=== PATIENT | male | born 1950 | race Caucasian/White ===

== ENCOUNTER 2017-01-15 17:04 | Observation (INO) | payer MEDICARE, BC ==
[2017-01-15] MEDS ORDERED: Morphine 4 MG/ML Syringe IVPUSH PRN (17:17)
[2017-01-15] MEDS ORDERED: Ondansetron 4 MG/2 ML SDV IVPUSH STA (17:17)
[2017-01-15] MEDS ORDERED: Nitroglycerin 0.4 MG Tab.SL SL PRN ×2 (17:17→19:27)
[2017-01-15] MEDS ORDERED: Aspirin 81 MG Tab.Chew PO ONE (17:17)
[2017-01-15] MEDS ORDERED: Sodium Chloride 0.9% 10 ML Syringe FLUSH PRN ×2 (17:17→19:27)
--- NOTE | 2017-01-15 17:22 | EDM.PDOC ---
ED HISTORY OF PRESENT ILLNESS - General Chief Complaint: Chest Pain Stated Complaint: CHEST PAINS Time Seen by Provider: 01/15/17 17:14 Source: Reports: Patient, Family, RN notes reviewed History Limitations: Reports: No limitations - History of Present Illness INITIAL COMMENTS - FREE TEXT/NARRATIVE: 66-year-old gentleman presents emergency department day complaint of chest pain , he states that pain come on suddenly a couple hours prior while he was driving he does have a history of pulmonary embolism he does feel short of breath no nausea vomiting no diaphoresis he is also anticoagulated - Related Data Allergies/ADRs: Allergies Allergy/AdvReac Type Severity Reaction Status Date / Time No Known Allergies Allergy Verified 06/02/16 08:38 Home Meds: Home Meds Metoprolol Succinate 50 mg PO DAILY 03/09/14 [History] Warfarin [Coumadin] 3.5 mg PO ASDIRECTED 03/09/14 [History] Warfarin [Coumadin] 5 mg PO ASDIRECTED 03/09/14 [History] Tiotropium [Spiriva HandiHaler] 1 puff INH DAILY 03/22/16 [History] Albuterol Sulfate [Proair Hfa] 2 puff IH Q6H PRN 04/05/16 [History] Chromium Cinnamon 200 - 1,000 tab PO DAILY 04/05/16 [History] Fluticasone Propionate [Flovent HFA 44 mcg] 2 puff IH BID 04/05/16 [History] Furosemide [Lasix] 40 mg PO DAILY 04/05/16 [History] Lisinopril 10 mg PO DAILY 04/05/16 [History] Calcium Carbonate/Vitamin D3 [Calcium 600 + D3 Softgel] 1 each PO BID 05/31/16 [ History] Cyclobenzaprine [Flexeril] 10 mg PO TID PRN 05/31/16 [History] Allopurinol [Zyloprim] 300 mg PO DAILY 01/15/17 [History] Ascorbic Acid [Vitamin C] 01/15/17 [History] Magnesium Oxide [Magnesium] 01/15/17 [History] Potassium Chloride 01/15/17 [History] Past Medical History Cardiovascular History: Reports: Blood clots/VTE/DVT, Heart murmur, Pacemaker Respiratory History: Reports: COPD, PE Gastrointestinal History: Reports: Colon polyp Musculoskeletal History: Reports: Back pain, chronic, Neck pain, chronic Endocrine/Metabolic History: Reports: Diabetes, type II, Obesity/BMI 30+ Hematologic History: Reports: Blood transfusion(s) Other Hematologic History: Anticoagulation therapy Oncologic (Cancer) History: Reports: Colon - Infectious Disease History Infectious Disease History: Reports: Measles, Mumps, Pertussis (whooping cough) - Past Surgical History HEENT Surgical History: Reports: LUI Cardiovascular Surgical History: Reports: Pacer Respiratory Surgical History: Reports: Other (see below) Other Respiratory Surgeries/Procedures: filter GI Surgical History: Reports: Appendectomy, Colon, Colonoscopy, Hernia, abdominal, Hernia, inguinal, Polypectomy, Other (see below) Other GI Surgeries/Procedures: colon cancer resection Musculoskeletal Surgical History: Reports: Arthroscopic knee Oncologic Surgical History: Reports: Other (see below) Other Oncologic Surgeries/Procedures: colon resection Social & Family History - Tobacco Use Smoking Status *Q: Never Smoker Years of Tobacco use: 30 Used Tobacco, but Quit: Yes Month Tobacco Last Used: 11 Second Hand Smoke Exposure: No - Caffeine Use Caffeine Use: Reports: Coffee - Alcohol Use Days Per Week of Alcohol Use: 6 Number of Drinks Per Day: 4 Total Drinks Per Week: 24 - Recreational Drug Use Recreational Drug Use: No ED ROS GENERAL - Review of Systems Review Of Systems: See Below Constitutional: Reports: no symptoms HEENT: Reports: No symptoms Respiratory: Reports: Shortness of Breath. Denies: Cough, Sputum Cardiovascular: Reports: Chest pain, Dyspnea on exertion GI/Abdominal: Reports: No symptoms : Reports: no symptoms Musculoskeletal: Reports: no symptoms Skin: Reports: no symptoms Neurological: Reports: No Symptoms ED EXAM, GENERAL - Physical Exam Exam: See Below Exam Limited By: No limitations General Appearance: alert, WD/WN, mild distress Head: atraumatic, normocephalic Neck: normal inspection, supple, non-tender, full range of motion Respiratory/Chest: no respiratory distress, lungs clear, normal breath sounds, no accessory muscle use, chest non-tender Cardiovascular: regular rate, rhythm, no murmur GI/Abdominal: soft, non tender, other (Obese) Extremities: pedal edema Course - Vital Signs Last Recorded V/S: Last Vital Signs Temp 98.4 F 01/15/17 18:11 Pulse 74 01/15/17 18:11 Resp 16 01/15/17 18:11 BP 166/76 H 01/15/17 18:11 Pulse Ox 97 01/15/17 18:11 - Orders/Labs/Meds Orders: Active Orders 24 hr Category Date Time Status Cardiac Monitoring [RC] .As Directed Care 01/15/17 17:17 Active EKG Documentation Completion [RC] ASDIRECTED Care 01/15/17 17:18 Active Peripheral IV Care [RC] . DIRECTED Care 01/15/17 17:18 Active Chest 1V Frontal [CR] Stat Exams 01/15/17 17:18 Taken Morphine Med 01/15/17 17:17 Active See Dose Instructions IVPUSH ASDIRECTED PRN Nitroglycerin [Nitrostat] Med 01/15/17 17:17 Active 0.4 mg SL Q5M PRN Sodium Chloride 0.9% [Saline Flush] Med 01/15/17 17:17 Active 10 ml FLUSH ASDIRECTED PRN ED Pain Medications Reflex [OM.PC] Stat Oth 01/15/17 17:18 Ordered Peripheral IV Insertion Adult [OM.PC] Stat Oth 01/15/17 17:17 Ordered Saline Lock Insert [OM.PC] Stat Oth 01/15/17 17:17 Ordered EKG 12 Lead [EK] Stat Ther 01/15/17 17:18 Ordered Medication Orders Morphine Sulfate (Morphine) 0 mg IVPUSH ASDIRECTED PRN PRN Reason: Pain Stop: 01/16/17 17:18 Last Admin: 01/15/17 17:43 Dose: 4 mg Nitroglycerin (Nitrostat) 0.4 mg SL Q5M PRN PRN Reason: Chest Pain Stop: 01/16/17 17:18 Last Admin: 01/15/17 17:31 Dose: 0.4 mg Sodium Chloride (Saline Flush) 10 ml FLUSH ASDIRECTED PRN PRN Reason: Keep Vein Open Labs: Laboratory Tests 01/15/17 01/15/17 01/15/17 Range/Units 17:25 17:25 17:25 WBC 7.6 (4.5-11.0) K/uL RBC 4.54 (4.30-5.90) M/uL Hgb 15.6 H (12.0-15.0) g/dL Hct 45.7 (40.0-54.0) % MCV 101 H (80-98) fL MCH 34 H (27-31) pg MCHC 34 (32-36) % Plt Count 234 (150-400) K/uL Neut % (Auto) 63 (36-66) % Lymph % (Auto) 22 L (24-44) % [place] % (Auto) 10 H (2-6) % Eos % (Auto) 3 (2-4) % Baso % (Auto) 1 (0-1) % PT 21.2 H (9.5-12.0) sec INR 1.96 H (0.80-1.20) APTT 39.7 H (27.0-36.0) sec D-Dimer, Quantitative < 100 (0.0-400.0) ng/mL Sodium (140-148) mmol/L Potassium (3.6-5.2) mmol/L Chloride (100-108) mmol/L Carbon Dioxide (21-32) mmol/L Anion Gap (5.0-14.0) mmol/L BUN (7-18) mg/dL Creatinine (0.8-1.3) mg/dL Est Cr Clr Drug Dosing mL/min Estimated GFR (MDRD) (>60) Glucose (74-106) mg/dL Calcium (8.5-10.1) mg/dL Total Bilirubin (0.2-1.0) mg/dL AST (15-37) U/L ALT (12-78) U/L Alkaline Phosphatase (46-116) U/L CK-MB (CK-2) (0-3.6) mg/mL Troponin I (0.000-0.056) ng/mL Zgs-X-Dujreppjbzu Pept (5-125) pg/mL Total Protein (6.4-8.2) g/dL Albumin (3.4-5.0) g/dL Globulin (2.3-3.5) g/dL Albumin/Globulin Ratio (1.2-2.2) 01/15/17 Range/Units 17:25 WBC (4.5-11.0) K/uL RBC (4.30-5.90) M/uL Hgb (12.0-15.0) g/dL Hct (40.0-54.0) % MCV (80-98) fL MCH (27-31) pg MCHC (32-36) % Plt Count (150-400) K/uL Neut % (Auto) (36-66) % Lymph % (Auto) (24-44) % [place] % (Auto) (2-6) % Eos % (Auto) (2-4) % Baso % (Auto) (0-1) % PT (9.5-12.0) sec INR (0.80-1.20) APTT (27.0-36.0) sec D-Dimer, Quantitative (0.0-400.0) ng/mL Sodium 145 (140-148) mmol/L Potassium 4.6 (3.6-5.2) mmol/L Chloride 105 (100-108) mmol/L Carbon Dioxide 30 (21-32) mmol/L Anion Gap 10.4 (5.0-14.0) mmol/L BUN 16 (7-18) mg/dL Creatinine 1.1 D (0.8-1.3) mg/dL Est Cr Clr Drug Dosing 77.84 mL/min Estimated GFR (MDRD) > 60 (>60) Glucose 111 H (74-106) mg/dL Calcium 9.5 (8.5-10.1) mg/dL Total Bilirubin 0.3 (0.2-1.0) mg/dL AST 29 (15-37) U/L ALT 28 (12-78) U/L Alkaline Phosphatase 47 (46-116) U/L CK-MB (CK-2) 2.4 (0-3.6) mg/mL Troponin I < 0.017 (0.000-0.056) ng/mL Aws-M-Secifkncvdi Pept 99 (5-125) pg/mL Total Protein 7.5 (6.4-8.2) g/dL Albumin 3.7 (3.4-5.0) g/dL Globulin 3.8 H (2.3-3.5) g/dL Albumin/Globulin Ratio 1.0 L (1.2-2.2) Meds: Medications Generic Name Dose Route Start Last Admin Trade Name Freq PRN Reason Stop Dose Admin Morphine Sulfate 0 mg 01/15/17 17:17 01/15/17 17:43 Morphine IVPUSH 01/16/17 17:18 4 mg ASDIRECTED PRN Administration Pain Nitroglycerin 0.4 mg 01/15/17 17:17 01/15/17 17:31 Nitrostat SL 01/16/17 17:18 0.4 mg Q5M PRN Administration Chest Pain Sodium Chloride 10 ml 01/15/17 17:17 Saline Flush FLUSH ASDIRECTED PRN Keep Vein Open Discontinued Medications Generic Name Dose Route Start Last Admin Trade Name Claribel PRN Reason Stop Dose Admin Aspirin 324 mg 01/15/17 17:17 01/15/17 17:30 Aspirin PO 01/15/17 17:18 324 mg ONETIME ONE Administration Ondansetron HCl 4 mg 01/15/17 17:17 Zofran IVPUSH 01/15/17 17:18 ASDIRECTED STA Departure - Departure Time of Disposition: 18:32 Disposition: Admitted As Inpatient 67 Condition: good Clinical Impression: Chest pain Qualifiers: Chest pain type: unspecified Qualified Code(s): R07.9 - Chest pain, unspecified Forms: ED Department Discharge - My Orders Last 24 Hours: My Active Orders 01/15/17 17:17 Cardiac Monitoring [RC] .As Directed Morphine See Dose Instructions IVPUSH ASDIRECTED PRN Nitroglycerin [Nitrostat] 0.4 mg SL Q5M PRN Sodium Chloride 0.9% [Saline Flush] 10 ml FLUSH ASDIRECTED PRN Peripheral IV Insertion Adult [OM.PC] Stat Saline Lock Insert [OM.PC] Stat 01/15/17 17:18 EKG Documentation Completion [RC] ASDIRECTED Peripheral IV Care [RC] . DIRECTED Chest 1V Frontal [CR] Stat ED Pain Medications Reflex [OM.PC] Stat EKG 12 Lead [EK] Stat - Assessment/Plan Last 24 Hours: My Active Orders 01/15/17 17:17 Cardiac Monitoring [RC] .As Directed Morphine See Dose Instructions IVPUSH ASDIRECTED PRN Nitroglycerin [Nitrostat] 0.4 mg SL Q5M PRN Sodium Chloride 0.9% [Saline Flush] 10 ml FLUSH ASDIRECTED PRN Peripheral IV Insertion Adult [OM.PC] Stat Saline Lock Insert [OM.PC] Stat 01/15/17 17:18 EKG Documentation Completion [RC] ASDIRECTED Peripheral IV Care [RC] . DIRECTED Chest 1V Frontal [CR] Stat ED Pain Medications Reflex [OM.PC] Stat EKG 12 Lead [EK] Stat Plan: Assessment Acuity = acute Site and laterality = chest pain complicated patient with known history of pulmonary embolism on chronic anticoagulation, diabetes mellitus type 2, dyslipidemia and hypertension Etiology = unclear etiology Manifestations = none Location of injury = home Lab values = INR therapeutic 1.96 d-dimer is negative, troponin negative EKG demonstrates paced rhythm chest x-ray I did review films myself I cannot appreciate any acute process, the official read from radiology is pending Plan DOUG score is 2, heart score is 5 called discussed case with hospitalist division head he agreed to come to the emergency department evaluate the patient for admission Patient was in agreement with the plan all questions were answered, This note was dictated using Test[employer] voice recognition software please call with any questions.
[2017-01-15] MEDS ORDERED: Sodium Chloride 0.9% 80 ML IV SCH ×2 (19:15)
[2017-01-15] MEDS ORDERED: Iopamidol 755 Mg/ML 100 ML Bottle IV SCH ×2 (19:15)
--- NOTE | 2017-01-15 19:17 | PCM.HP ---
H&P History of Present Illness - General Date of Service: 01/15/17 Admit Problem/Dx: Admission Diagnosis/Problem Admission Diagnosis/Problem Chest pain Source of Information: Patient, Family, Provider, RN notes reviewed History Limitations: Reports: No limitations - History of Present Illness Initial Comments - Free Text/Narative: This patient is a 66-year-old gentleman who is admitted to observation status for further evaluation and management of chest pain. He was feeling well until midafternoon when he noted abrupt onset of severe pleuritic pain in his lower anterior chest. The pain did not radiate but was persistent especially with breathing. Pain improves if he takes more shallow breaths. When the pain persisted he presented to the emergency department for further evaluation. EKG shows no acute ST segment changes and chest x-ray shows no obvious infiltrates or other abnormalities. He does have a past history of deep vein thrombosis as well as pulmonary emboli. 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 Troponin level is normal, d-dimer normal, with a normal white blood cell count. Vital signs have been stable and he has remained afebrile. Mid-Sternal Chest Pain Score (Numeric/FACES): 6 - Related Data Allergies/Adverse Reactions: Allergies Allergy/AdvReac Type Severity Reaction Status Date / Time No Known Allergies Allergy Verified 06/02/16 08:38 Home Medications: Home Meds Metoprolol Succinate 50 mg PO DAILY 03/09/14 [History] Warfarin [Coumadin] 3.5 mg PO ASDIRECTED 03/09/14 [History] Warfarin [Coumadin] 5 mg PO ASDIRECTED 03/09/14 [History] Tiotropium [Spiriva HandiHaler] 1 puff INH DAILY 03/22/16 [History] Albuterol Sulfate [Proair Hfa] 2 puff IH Q6H PRN 04/05/16 [History] Chromium Cinnamon 200 - 1,000 tab PO DAILY 04/05/16 [History] Fluticasone Propionate [Flovent HFA 44 mcg] 2 puff IH BID 04/05/16 [History] Furosemide [Lasix] 40 mg PO DAILY 04/05/16 [History] Lisinopril 10 mg PO DAILY 04/05/16 [History] Calcium Carbonate/Vitamin D3 [Calcium 600 + D3 Softgel] 1 each PO BID 05/31/16 [ History] Cyclobenzaprine [Flexeril] 10 mg PO TID PRN 05/31/16 [History] Allopurinol [Zyloprim] 300 mg PO DAILY 01/15/17 [History] Ascorbic Acid [Vitamin C] 01/15/17 [History] Magnesium Oxide [Magnesium] 01/15/17 [History] Potassium Chloride 01/15/17 [History] Past Medical History Cardiovascular History: Reports: Blood clots/VTE/DVT, Heart murmur, Pacemaker Respiratory History: Reports: COPD, PE Gastrointestinal History: Reports: Colon polyp Genitourinary History: Reports: Prostate disorder Musculoskeletal History: Reports: Back pain, chronic, Neck pain, chronic Endocrine/Metabolic History: Reports: Diabetes, type II, Obesity/BMI 30+ Hematologic History: Reports: Blood transfusion(s) Other Hematologic History: Anticoagulation therapy Oncologic (Cancer) History: Reports: Colon - Infectious Disease History Infectious Disease History: Reports: Measles, Mumps, Pertussis (whooping cough) - Past Surgical History HEENT Surgical History: Reports: LUI Cardiovascular Surgical History: Reports: Pacer Respiratory Surgical History: Reports: Other (see below) Other Respiratory Surgeries/Procedures: filter GI Surgical History: Reports: Appendectomy, Colon, Colonoscopy, Hernia, abdominal, Hernia, inguinal, Polypectomy, Other (see below) Other GI Surgeries/Procedures: colon cancer resection Musculoskeletal Surgical History: Reports: Arthroscopic knee Oncologic Surgical History: Reports: Other (see below) Other Oncologic Surgeries/Procedures: colon resection Social & Family History - Tobacco Use Smoking Status *Q: Never Smoker Years of Tobacco use: 30 Used Tobacco, but Quit: Yes Month Tobacco Last Used: 11 Second Hand Smoke Exposure: No - Caffeine Use Caffeine Use: Reports: Coffee - Alcohol Use Days Per Week of Alcohol Use: 6 Number of Drinks Per Day: 4 Total Drinks Per Week: 24 - Recreational Drug Use Recreational Drug Use: No H&P Review of Systems - Review of Systems: Review Of Systems: See Below General: Denies: fever, chills, weakness, fatigue, diaphoresis HEENT: Reports: no symptoms Pulmonary: Reports: Pleuritic Chest Pain. Denies: Shortness of Breath, Wheezing , Cough, Sputum, Hemoptysis Cardiovascular: Reports: no symptoms Gastrointestinal: Reports: No symptoms Genitourinary: Reports: no symptoms Musculoskeletal: Reports: no symptoms Skin: Reports: no symptoms Psychiatric: Reports: no symptoms Neurological: Reports: No Symptoms Hematologic/Lymphatic: Reports: no symptoms Immunologic: Reports: no symptoms Exam - Exam Exam: See Below - Vital Signs Vital Signs: Last Vital Signs Temp 98.4 F 01/15/17 18:11 Pulse 74 01/15/17 18:11 Resp 16 01/15/17 18:11 BP 166/76 H 01/15/17 18:11 Pulse Ox 97 01/15/17 18:11 Weight: 337 lb 4.916 oz - Exam Quality Assessment: DVT prophylaxis General: alert, oriented, cooperative, mild distress HEENT: Conjunctiva clear, EOMI, Hearing intact, Mucosa moist & pink, Nares patent, Normal nasal septum, Posterior pharynx clear, Pupils equal, Pupils reactive, TMs clear Neck: supple, trachea midline, +2 carotid pulse wo bruit Lungs: Clear to auscultation, Normal respiratory effort Cardiovascular: regular rate, regular rhythm, normal S1, normal S2. No: systolic murmur, diastolic murmur Abdomen: normal bowel sounds, soft Back Exam: normal inspection, full range of motion, NT Extremities: 3, normal inspection, 10 Skin: warm, dry, intact Neurological: cranial nerves intact, strength equal bilateral, normal gait, normal speech, normal tone, sensation intact. No: focal deficit Neuro Extensive - Mental Status: alert, oriented x3, normal mood/affect, normal cognition, memory intact - Patient Data Lab Results last 24 hrs: Laboratory Results - last 24 hr 01/15/17 01/15/17 01/15/17 Range/Units 17:25 17:25 17:25 WBC 7.6 (4.5-11.0) K/uL RBC 4.54 (4.30-5.90) M/uL Hgb 15.6 H (12.0-15.0) g/dL Hct 45.7 (40.0-54.0) % MCV 101 H (80-98) fL MCH 34 H (27-31) pg MCHC 34 (32-36) % Plt Count 234 (150-400) K/uL Neut % (Auto) 63 (36-66) % Lymph % (Auto) 22 L (24-44) % [place] % (Auto) 10 H (2-6) % Eos % (Auto) 3 (2-4) % Baso % (Auto) 1 (0-1) % PT 21.2 H (9.5-12.0) sec INR 1.96 H (0.80-1.20) APTT 39.7 H (27.0-36.0) sec D-Dimer, Quantitative < 100 (0.0-400.0) ng/mL Sodium (140-148) mmol/L Potassium (3.6-5.2) mmol/L Chloride (100-108) mmol/L Carbon Dioxide (21-32) mmol/L Anion Gap (5.0-14.0) mmol/L BUN (7-18) mg/dL Creatinine (0.8-1.3) mg/dL Est Cr Clr Drug Dosing mL/min Estimated GFR (MDRD) (>60) Glucose (74-106) mg/dL Calcium (8.5-10.1) mg/dL Total Bilirubin (0.2-1.0) mg/dL AST (15-37) U/L ALT (12-78) U/L Alkaline Phosphatase (46-116) U/L CK-MB (CK-2) (0-3.6) mg/mL Troponin I (0.000-0.056) ng/mL Lyh-J-Xfgeogaopog Pept (5-125) pg/mL Total Protein (6.4-8.2) g/dL Albumin (3.4-5.0) g/dL Globulin (2.3-3.5) g/dL Albumin/Globulin Ratio (1.2-2.2) 01/15/17 Range/Units 17:25 WBC (4.5-11.0) K/uL RBC (4.30-5.90) M/uL Hgb (12.0-15.0) g/dL Hct (40.0-54.0) % MCV (80-98) fL MCH (27-31) pg MCHC (32-36) % Plt Count (150-400) K/uL Neut % (Auto) (36-66) % Lymph % (Auto) (24-44) % [place] % (Auto) (2-6) % Eos % (Auto) (2-4) % Baso % (Auto) (0-1) % PT (9.5-12.0) sec INR (0.80-1.20) APTT (27.0-36.0) sec D-Dimer, Quantitative (0.0-400.0) ng/mL Sodium 145 (140-148) mmol/L Potassium 4.6 (3.6-5.2) mmol/L Chloride 105 (100-108) mmol/L Carbon Dioxide 30 (21-32) mmol/L Anion Gap 10.4 (5.0-14.0) mmol/L BUN 16 (7-18) mg/dL Creatinine 1.1 D (0.8-1.3) mg/dL Est Cr Clr Drug Dosing 77.84 mL/min Estimated GFR (MDRD) > 60 (>60) Glucose 111 H (74-106) mg/dL Calcium 9.5 (8.5-10.1) mg/dL Total Bilirubin 0.3 (0.2-1.0) mg/dL AST 29 (15-37) U/L ALT 28 (12-78) U/L Alkaline Phosphatase 47 (46-116) U/L CK-MB (CK-2) 2.4 (0-3.6) mg/mL Troponin I < 0.017 (0.000-0.056) ng/mL Ixg-G-Upbtrfyvick Pept 99 (5-125) pg/mL Total Protein 7.5 (6.4-8.2) g/dL Albumin 3.7 (3.4-5.0) g/dL Globulin 3.8 H (2.3-3.5) g/dL Albumin/Globulin Ratio 1.0 L (1.2-2.2) Result Diagrams: 01/15/17 17:25 01/15/17 17:25 *Q Meaningful Use (ADM) - VTE *Q VTE Criteria *Q: VTE Pharmacological Contraindications *Q: High INR Value - VTE Risk Assess *Q Each Risk Factor Represents 1 Point: Abnormal Pulmonary Function (COPD) Total Score 1 Point Risk Factors: 1 Each Risk Factor Represents 2 Points: Age 60 - 74 Years, Morbid Obesity (BMI Greater than 40) Total Score 2 Point Risk Factors: 4 Each Risk Factor Represents 3 Points: History Superficial Venous Thrombosis, DVT or PE Total Score 3 Point Risk Factors: 3 Each Risk Factor Represents 5 Points: None Total Score 5 Point Risk Factors: 0 Venous Thromboembolism Risk Factor Score *Q: 8 - Stroke *Q Stroke Criteria *Q: - AMI *Q AMI Criteria *Q: Problem List Initiated/Reviewed/Updated: Yes Orders Last 24hrs: Active Orders 24 hr Category Date Time Status Patient Status Manage Transfer [TRANSFER] Routine ADT 01/15/17 18:55 Ordered Cardiac Monitoring [RC] .As Directed Care 01/15/17 17:17 Active Cardiac Monitoring [RC] .As Directed Care 01/15/17 18:55 Ordered EKG Documentation Completion [RC] ASDIRECTED Care 01/15/17 17:18 Active Peripheral IV Care [RC] . DIRECTED Care 01/15/17 17:18 Active Ang Chest [CT] Stat Exams 01/15/17 18:52 Ordered Chest 1V Frontal [CR] Stat Exams 01/15/17 17:18 Taken Iopamidol [Isovue-370 (76%)] Med 01/15/17 19:15 Active 100 ml IV . DIRECTED Morphine Med 01/15/17 17:17 Active See Dose Instructions IVPUSH ASDIRECTED PRN Nitroglycerin [Nitrostat] Med 01/15/17 17:17 Active 0.4 mg SL Q5M PRN Sodium Chloride 0.9% [Normal Saline] 80 ml Med 01/15/17 19:15 Active IV ASDIRECTED Sodium Chloride 0.9% [Saline Flush] Med 01/15/17 17:17 Active 10 ml FLUSH ASDIRECTED PRN ED Pain Medications Reflex [OM.PC] Stat Oth 01/15/17 17:18 Ordered Peripheral IV Insertion Adult [OM.PC] Stat Oth 01/15/17 17:17 Ordered Saline Lock Insert [OM.PC] Stat Oth 01/15/17 17:17 Ordered Resuscitation Status Routine Resus Stat 01/15/17 18:57 Ordered EKG 12 Lead [EK] Stat Ther 01/15/17 17:18 Ordered Medication Orders Sodium Chloride (Normal Saline) 80 mls @ 3 mls/sec IV ASDIRECTED CHRIS Iopamidol (Isovue-370 (76%)) 100 ml IV . DIRECTED CHRIS Morphine Sulfate (Morphine) 0 mg IVPUSH ASDIRECTED PRN PRN Reason: Pain Stop: 01/16/17 17:18 Last Admin: 01/15/17 17:43 Dose: 4 mg Nitroglycerin (Nitrostat) 0.4 mg SL Q5M PRN PRN Reason: Chest Pain Stop: 01/16/17 17:18 Last Admin: 01/15/17 17:31 Dose: 0.4 mg Sodium Chloride (Saline Flush) 10 ml FLUSH ASDIRECTED PRN PRN Reason: Keep Vein Open Assessment/Plan Comment:: ASSESSMENT AND PLAN PLEURITIC CHEST PAIN-abrupt onset today, improved with narcotics, no improvement with nitroglycerin. 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 Troponin, d-dimer, and white blood cell count are within normal range. EKG shows no acute ST segment changes and chest x-ray no obvious infiltrates. -CT scan of the chest with PE protocol -Serial troponin levels -Pain medication as needed -Cardiac monitoring TYPE 2 DIABETES MELLITUS-currently on no active treatment -4 times a day glucometers -Low-dose sliding scale NovoLog HISTORY OF DAILY ALCOHOL USE-he estimates 6-8 ounces per day -Monitor closely for any evidence of alcohol withdrawal CHRONIC ORAL ANTICOAGULATION WITH WARFARIN -Continue outpatient warfarin dosing -Recheck INR in a.m. MAINTENANCE ISSUES -DVT prophylaxis; current therapy with warfarin should provide adequate DVT prophylaxis -GI prophylaxis; Protonix 40 mg by mouth daily -[place] catheter; not indicated -Nutrition; consistent carb diet -Nicotine dependence; not required CODE STATUS-FULL CODE ADMISSION STATUS-patient will be admitted to observation status, expect no more than a one night hospital stay for evaluation and management of chest pain as outlined above DISPOSITION-anticipate discharge to home after the hospital stay. PRIMARY CARE PROVIDER-Dr. Olivier
[2017-01-15] MEDS ORDERED: HYDROmorphone 0.5 MG/0.5 ML Syringe IVPUSH PRN (19:27)
[2017-01-15] MEDS ORDERED: oxyCODONE 5 MG Tab PO PRN (19:27)
[2017-01-15] MEDS ORDERED: Albuterol 0.083% 2.5 MG/3 ML Neb Soln NEB PRN (19:27)
[2017-01-15] MEDS ORDERED: Albuterol 8 GM Inhaler INH PRN (19:27)
[2017-01-15] MEDS ORDERED: Pantoprazole 40 MG Tab.CR PO SCH (19:27)
[2017-01-15] MEDS ORDERED: Acetaminophen 325 MG Tab PO PRN (19:27)
[2017-01-15] MEDS ORDERED: Ondansetron 4 MG/2 ML SDV IV PRN (19:27)
[2017-01-16 08:31] VITALS: BP 158/83
[2017-01-16] MEDS ORDERED: Allopurinol 300 MG Tab PO SCH (09:00)
[2017-01-16] MEDS ORDERED: Tiotropium Inhaler 18 MCG Inhalation Powder Cap Kit of 5 INH SCH (09:00)
[2017-01-16] MEDS ORDERED: Lisinopril 10 MG Tab PO SCH (09:00)
[2017-01-16] MEDS ORDERED: Potassium Chloride 20 MEQ Tab.ER PO SCH (09:00)
[2017-01-16] MEDS ORDERED: Furosemide 40 MG Tab PO SCH (09:00)
[2017-01-16] MEDS ORDERED: Metoprolol Succinate 50 MG Tab.ER PO SCH (09:00)
[2017-01-16] MEDS ORDERED: Aspirin 81 MG Tab.Chew PO SCH (09:00)
[2017-01-16] MEDS ORDERED: FLUTICASONE PROPIONATE IH SCH (09:00)
--- NOTE | 2017-01-16 09:15 | CR ---
Mild cardiomegaly. Pacer with multiple leads. No focal consolidation.
--- NOTE | 2017-01-16 09:44 | PCM.DCSUM1 ---
Discharge Summary - Hospital Course Brief History: This patient is a 66-year-old gentleman who was admitted through the emergency department observation status for further evaluation and management of pleuritic chest pain. - Discharge Data Discharge Date: 01/16/17 Discharge Disposition: Home, Self-Care 01 Condition: Fair - Discharge Diagnosis/Problem(s) (1) Pleuritic chest pain SNOMED Code(s): 4141308 ICD Code: R07.81 - PLEURODYNIA Status: Acute Current Visit: Yes (2) SOB (shortness of breath) SNOMED Code(s): 310217696 ICD Code: R06.02 - SHORTNESS OF BREATH Status: Acute Current Visit: Yes - Patient Summary/Data Hospital Course: This patient is a 66-year-old gentleman who developed abrupt onset of pleuritic chest pain on the day of admission. Pain was of moderate intensity and was persistent after presentation to the emergency department. EKG showed no acute ST segment changes and initial troponin level was within normal range. Chest x- ray showed no obvious infiltrates and other laboratory studies were unremarkable. He has a known history of deep vein thrombosis and pulmonary embolism and has been on long-term oral anticoagulation with warfarin. A [place] filter was placed in the inferior vena cava in the past and remains in place. CT scan of the chest with PE protocol was obtained showing no evidence of pulmonary embolism or other significant abnormalities within the chest. He was admitted to observation status, serial troponin levels remained within normal range. By the following morning the pain had improved but had not totally resolved. A Lexiscan Cardiolite study will be scheduled for the day after discharge and a followup appointment will be scheduled with Dr. Olivier within one week. Activity will be as tolerated and he will resume his usual diet. - Patient Instructions Diet: Usual Diet as Tolerated Activity: As Tolerated Other/Special Instructions: Please schedule outpatient Lexiscan Cardiolite study for Sunday, January 17. Please schedule followup appointment with Dr. Olivier within one week. - Discharge Plan Home Medications: Home Meds Metoprolol Succinate 50 mg PO DAILY 03/09/14 [History] Warfarin [Coumadin] 3.5 mg PO ASDIRECTED 03/09/14 [History] Warfarin [Coumadin] 5 mg PO ASDIRECTED 03/09/14 [History] Tiotropium [Spiriva HandiHaler] 1 puff INH DAILY 03/22/16 [History] Albuterol Sulfate [Proair Hfa] 2 puff IH Q6H PRN 04/05/16 [History] Chromium Cinnamon 200 - 1,000 tab PO DAILY 04/05/16 [History] Fluticasone Propionate [Flovent HFA 44 mcg] 2 puff IH BID 04/05/16 [History] Furosemide [Lasix] 40 mg PO DAILY 04/05/16 [History] Lisinopril 10 mg PO DAILY 04/05/16 [History] Calcium Carbonate/Vitamin D3 [Calcium 600 + Vit D 400 Softgl] 1 each PO BID [History] Cyclobenzaprine [Flexeril] 10 mg PO TID PRN 05/31/16 [History] Allopurinol [Zyloprim] 300 mg PO DAILY 01/15/17 [History] Ascorbic Acid [Vitamin C] 01/15/17 [History] Magnesium Oxide [Magnesium] 01/15/17 [History] Potassium Chloride 01/15/17 [History] Referrals: Olvin Olivier MD [Primary Care Provider] - - Patient Data Vitals - Most Recent: Last Vital Signs Temp 97.4 F 01/16/17 08:00 Pulse 84 01/16/17 08:00 Resp 11 L 01/16/17 08:00 BP 158/83 H 01/16/17 08:00 Pulse Ox 96 01/16/17 08:00 Weight - Most Recent: 337 lb 4.916 oz I&O - Last 24 hours: Intake & Output 01/15/17 01/16/17 01/16/17 22:59 06:59 14:59 Intake Total 1900 460 Output Total 500 Balance 1400 460 Lab Results - Last 24 hrs: Laboratory Results - last 24 hr 01/15/17 01/16/17 01/16/17 Range/Units 23:00 05:00 05:00 WBC 6.3 (4.5-11.0) K/uL RBC 4.31 (4.30-5.90) M/uL Hgb 14.5 (12.0-15.0) g/dL Hct 44.0 (40.0-54.0) % MCV 102 H (80-98) fL MCH 34 H (27-31) pg MCHC 33 (32-36) % Plt Count 187 (150-400) K/uL Neut % (Auto) 60 (36-66) % Lymph % (Auto) 25 (24-44) % Kleberg % (Auto) 11 H (2-6) % Eos % (Auto) 4 (2-4) % Baso % (Auto) 0 (0-1) % PT 20.1 H (9.5-12.0) sec INR 1.86 H (0.80-1.20) Sodium (140-148) mmol/L Potassium (3.6-5.2) mmol/L Chloride (100-108) mmol/L Carbon Dioxide (21-32) mmol/L Anion Gap (5.0-14.0) mmol/L BUN (7-18) mg/dL Creatinine (0.8-1.3) mg/dL Est Cr Clr Drug Dosing mL/min Estimated GFR (MDRD) (>60) Glucose (74-106) mg/dL Calcium (8.5-10.1) mg/dL Troponin I < 0.017 (0.000-0.056) ng/mL 01/16/17 Range/Units 05:00 WBC (4.5-11.0) K/uL RBC (4.30-5.90) M/uL Hgb (12.0-15.0) g/dL Hct (40.0-54.0) % MCV (80-98) fL MCH (27-31) pg MCHC (32-36) % Plt Count (150-400) K/uL Neut % (Auto) (36-66) % Lymph % (Auto) (24-44) % Kleberg % (Auto) (2-6) % Eos % (Auto) (2-4) % Baso % (Auto) (0-1) % PT (9.5-12.0) sec INR (0.80-1.20) Sodium 141 (140-148) mmol/L Potassium 4.0 (3.6-5.2) mmol/L Chloride 103 (100-108) mmol/L Carbon Dioxide 32 (21-32) mmol/L Anion Gap 6.5 (5.0-14.0) mmol/L BUN 19 H (7-18) mg/dL Creatinine 1.0 (0.8-1.3) mg/dL Est Cr Clr Drug Dosing 85.63 mL/min Estimated GFR (MDRD) > 60 (>60) Glucose 131 H (74-106) mg/dL Calcium 8.8 (8.5-10.1) mg/dL Troponin I < 0.017 (0.000-0.056) ng/mL Med Orders - Current: Current Medications Acetaminophen (Tylenol) 650 mg PO Q4H PRN PRN Reason: Pain (Mild 1-3)/fever Albuterol (Proventil Neb Soln) 2.5 mg NEB Q4H PRN PRN Reason: Shortness Of Breath/wheezing Albuterol (Ventolin Hfa) 0 gm INH Q4H PRN PRN Reason: Shortness of Breath Allopurinol (Zyloprim) 300 mg PO DAILY [facility] Aspirin (Aspirin) 81 mg PO DAILY [facility] Furosemide (Lasix) 40 mg PO DAILY [facility] Hydromorphone HCl (Dilaudid) 0.5 mg IVPUSH Q1H PRN PRN Reason: Pain Last Admin: 01/15/17 20:29 Dose: 0.5 mg Lisinopril (Prinivil) 10 mg PO DAILY [facility] Metoprolol Succinate (Toprol Xl) 50 mg PO DAILY [facility] Nitroglycerin (Nitrostat) 0.4 mg SL Q5M PRN PRN Reason: Chest Pain Stop: 01/16/17 19:01 Fluticasone Propionate [Flovent Hfa 44 Mcg]Pt Own 2 puff IH BID [facility] Ondansetron HCl (Zofran) 4 mg IV Q4H PRN PRN Reason: Nausea/Vomiting Oxycodone HCl (Oxycodone) 10 mg PO Q4H PRN PRN Reason: Pain (moderate 4-6) Last Admin: 01/15/17 22:57 Dose: 10 mg Pantoprazole Sodium (Protonix) 40 mg PO DAILY@0730 [facility] Potassium Chloride (Klor-Con M20) 20 meq PO DAILY [facility] Sodium Chloride (Saline Flush) 10 ml FLUSH ASDIRECTED PRN PRN Reason: Keep Vein Open Tiotropium [place] (Spiriva Handihaler) 0 mcg INH DAILY [facility] Warfarin Sodium (Coumadin) 5 mg PO DAILY@1300 [facility] Discontinued Medications Aspirin (Aspirin) 324 mg PO ONETIME ONE Stop: 01/15/17 17:18 Last Admin: 01/15/17 17:30 Dose: 324 mg Sodium Chloride (Normal Saline) 80 mls @ 3 mls/sec IV ASDIRECTED CHRIS Last Admin: 01/15/17 19:24 Dose: 3 mls/sec Sodium Chloride (Normal Saline) 80 mls @ 3 mls/sec IV ASDIRECTED [facility]IS Iopamidol (Isovue-370 (76%)) 100 ml IV . DIRECTED [facility] Iopamidol (Isovue-370 (76%)) 100 ml IV . DIRECTED [facility] Last Admin: 01/15/17 19:24 Dose: 100 ml Morphine Sulfate (Morphine) 0 mg IVPUSH ASDIRECTED PRN PRN Reason: Pain Stop: 01/16/17 17:18 Last Admin: 01/15/17 17:43 Dose: 4 mg Nitroglycerin (Nitrostat) 0.4 mg SL Q5M PRN PRN Reason: Chest Pain Stop: 01/16/17 17:18 Last Admin: 01/15/17 17:31 Dose: 0.4 mg Ondansetron HCl (Zofran) 4 mg IVPUSH ASDIRECTED STA Stop: 01/15/17 17:18 Last Admin: 01/15/17 18:31 Dose: Not Given Pantoprazole Sodium (Protonix) 40 mg PO DAILY [facility] Last Admin: 01/15/17 21:52 Dose: 40 mg Sodium Chloride (Saline Flush) 10 ml FLUSH ASDIRECTED PRN PRN Reason: Keep Vein Open Last Admin: 01/15/17 19:24 Dose: 10 ml *Q Meaningful Use (DIS) - VTE *Q VTE Criteria *Q: VTE Pharmacological Contraindications *Q: High INR Value - Stroke *Q Stroke Criteria *Q: - AMI *Q AMI Criteria *Q:
[2017-01-16] MEDS ORDERED: Warfarin 5 MG Tab PO SCH (13:00)
[2017-01-17] MEDS ORDERED: Pantoprazole 40 MG Tab.CR PO SCH (07:30)
== END 2017-01-16 11:01 | disposition home or self-care (01) ==
LOC: JP.ED 17:04 → JP.ICU 18:55
PROVIDERS: ADMIT Hospitalist; ATTEND Hospitalist
DX: R07.81 Pleurodynia (principal); R06.02 Shortness of breath; Z79.01 Long term (current) use of anticoagulants; Z79.899 Other long term (current) drug therapy; J44.9 Chronic obstructive pulmonary disease, unspecified; E11.9 Type 2 diabetes mellitus without complications; E66.9 Obesity, unspecified; Z68.30 Body mass index [BMI] 30.0-30.9, adult; Z90.49 Acquired absence of other specified parts of digestive tract; Z98.890 Other specified postprocedural states; Z95.0 Presence of cardiac pacemaker
CPT/HCPCS: 36415; 71010; 71275; 80048; 80053; 82553; 83880; 84484; 85025; 85379; 85610; 85730; 93005; 96374; 96375; 99285; A9270; G0378; J1170; J2270; J7030; J7050; Q9967; 93010; 99217; 99219

== ENCOUNTER 2017-03-01 15:30 | Emergency (ER) | payer MEDICARE, BC ==
--- NOTE | 2017-03-01 17:39 | EDM.PDOC ---
ED HPI GENERAL MEDICAL PROBLEM - General Chief Complaint: Abdominal Pain Stated Complaint: ABD PAIN Time Seen by Provider: 03/01/17 17:34 Source of Information: Reports: Patient History Limitations: Reports: No Limitations - History of Present Illness INITIAL COMMENTS - FREE TEXT/NARRATIVE: Abdominal pain for past 2 months. IN mid belly with radiation to flanks. Was admitted in January for chest symptoms , had cardiac work-up/ Had recent abdominal US negative gall bladder pathology. Pain will come and go, not associated with nausea or vomiting. States is different than heartburn. Nothing relieves it, although narcotics helped while in hospital. Had ventral hernia surgery last year with mesh placement, is concerned about that. Duration: Week(s): (8), Intermittent, Waxing/Waning Location: Reports: Abdomen Quality: Reports: Dull, Pressure, Throbbing Severity: Moderate Improves with: Reports: None Worsens with: Reports: None Associated Symptoms: Reports: No Other Symptoms Middle Abdominal Pain Score (Numeric/FACES): 10 - Related Data Allergies Allergy/AdvReac Type Severity Reaction Status Date / Time No Known Allergies Allergy Verified 06/02/16 08:38 Home Meds: Home Meds Metoprolol Succinate 50 mg PO DAILY 03/09/14 [History] Warfarin [Coumadin] 3.5 mg PO ASDIRECTED 03/09/14 [History] Warfarin [Coumadin] 5 mg PO ASDIRECTED 03/09/14 [History] Tiotropium [Spiriva HandiHaler] 1 puff INH DAILY 03/22/16 [History] Albuterol Sulfate [Proair Hfa] 2 puff IH Q6H PRN 04/05/16 [History] Chromium Cinnamon 200 - 1,000 tab PO DAILY 04/05/16 [History] Fluticasone Propionate [Flovent HFA 44 mcg] 2 puff IH BID 04/05/16 [History] Furosemide [Lasix] 40 mg PO DAILY 04/05/16 [History] Lisinopril 10 mg PO DAILY 04/05/16 [History] Calcium Carbonate/Vitamin D3 [Calcium 600 + Vit D 400 Softgl] 1 each PO BID [History] Cyclobenzaprine [Flexeril] 10 mg PO TID PRN 05/31/16 [History] Allopurinol [Zyloprim] 300 mg PO DAILY 01/15/17 [History] Ascorbic Acid [Vitamin C] 1,000 mg PO DAILY 01/15/17 [History] Magnesium Oxide [Magnesium] 500 mg PO DAILY 01/15/17 [History] Potassium Chloride 20 meq PO DAILY 01/15/17 [History] Past Medical History Cardiovascular History: Reports: Blood Clots/VTE/DVT, Heart Murmur, Hypertension , Pacemaker Respiratory History: Reports: COPD Gastrointestinal History: Reports: Colon Polyp Genitourinary History: Reports: Prostate Disorder Musculoskeletal History: Reports: Back Pain, Chronic, Neck Pain, Chronic Endocrine/Metabolic History: Reports: Diabetes, Type II, Obesity/BMI 30+ Hematologic History: Reports: Blood Transfusion(s) Other Hematologic History: Anticoagulation therapy Oncologic (Cancer) History: Reports: Colon - Infectious Disease History Infectious Disease History: Reports: Measles, Mumps, Pertussis (Whooping Cough) - Past Surgical History HEENT Surgical History: Reports: CATHIEIK Respiratory Surgical History: Reports: Other (See Below) GI Surgical History: Reports: Appendectomy, Colon, Colonoscopy, Hernia, Abdominal, Hernia, Inguinal, Polypectomy, Other (See Below) Musculoskeletal Surgical History: Reports: Arthroscopic Knee Oncologic Surgical History: Reports: Other (See Below) Social & Family History - Tobacco Use Smoking Status *Q: Former Smoker Years of Tobacco use: 30 Packs/Tins Daily: 1 Used Tobacco, but Quit: Yes Month Tobacco Last Used: 2000 Second Hand Smoke Exposure: Yes - Caffeine Use Caffeine Use: Reports: Coffee, Soda - Alcohol Use Days Per Week of Alcohol Use: 6 Number of Drinks Per Day: 6 Total Drinks Per Week: 36 - Recreational Drug Use Recreational Drug Use: No ED ROS GENERAL - Review of Systems Review Of Systems: See Below Constitutional: Reports: Malaise. Denies: Fever, Chills, Fatigue HEENT: Reports: No Symptoms Respiratory: Denies: Shortness of Breath, Pleuritic Chest Pain, Cough Cardiovascular: Denies: Chest Pain, Dyspnea on Exertion, Edema Endocrine: Reports: No Symptoms GI/Abdominal: Reports: Abdominal Pain, Distension. Denies: Black Stool, Bloody Stool, Diarrhea, Decreased Appetite, Difficulty Swallowing, Nausea, Vomiting : Reports: No Symptoms Musculoskeletal: Reports: No Symptoms Skin: Reports: No Symptoms Neurological: Reports: No Symptoms ED EXAM, GI/ABD - Physical Exam Exam: See Below Exam Limited By: Intoxication General Appearance: Alert, WD/WN, Mild Distress Neck: Normal Inspection Respiratory/Chest: No Respiratory Distress, Lungs Clear, Normal Breath Sounds Cardiovascular: Normal Peripheral Pulses, Regular Rate, Rhythm GI/Abdominal: Soft, Distention, Other (very obese, hard to get good exam). No: Guarding, Rebound Back Exam: Normal Inspection Extremities: Normal Inspection, Normal Range of Motion, No Pedal Edema Neurological: Alert, Oriented Skin Exam: Warm, Dry, No Rash Course - Vital Signs Last Recorded V/S: Last Vital Signs Temp Pulse 71 03/01/17 18:01 Resp 20 03/01/17 18:01 BP 154/88 H 03/01/17 18:01 Pulse Ox 95 03/01/17 18:01 - Orders/Labs/Meds Orders: Active Orders 24 hr Category Date Time Status Up With Assistance [RC] ASDIRECTED Care 03/01/17 17:26 Active Vital Signs [RC] Q2H Care 03/01/17 17:26 Active Abdomen Pelvis w Cont [CT] Urgent Exams 03/01/17 17:26 Taken Iopamidol [Isovue-300 (61%)] Med 03/01/17 18:00 Active 150 ml IV . DIRECTED Sodium Chloride 0.9% [Normal Saline] 80 ml Med 03/01/17 18:00 Active IV ASDIRECTED Sodium Chloride 0.9% [Saline Flush] Med 03/01/17 17:58 Active 10 ml FLUSH ASDIRECTED PRN Medication Orders Sodium Chloride (Normal Saline) 80 mls @ 3 mls/sec IV ASDIRECTED CHRIS Last Admin: 03/01/17 18:31 Dose: 3 mls/sec Iopamidol (Isovue-300 (61%)) 150 ml IV . DIRECTED [facility]RIS Last Admin: 03/01/17 18:31 Dose: 150 ml Sodium Chloride (Saline Flush) 10 ml FLUSH ASDIRECTED PRN PRN Reason: Keep Vein Open Last Admin: 03/01/17 18:28 Dose: 10 ml Labs: Laboratory Tests 03/01/17 03/01/17 Range/Units 17:25 17:25 WBC 7.7 (4.5-11.0) K/uL RBC 4.37 (4.30-5.90) M/uL Hgb 15.0 (12.0-15.0) g/dL Hct 44.0 (40.0-54.0) % MCV 101 H (80-98) fL MCH 34 H (27-31) pg MCHC 34 (32-36) % Plt Count 181 (150-400) K/uL Sodium 142 (140-148) mmol/L Potassium 4.5 (3.6-5.2) mmol/L Chloride 104 (100-108) mmol/L Carbon Dioxide 27 (21-32) mmol/L Anion Gap 10.9 (5.0-14.0) mmol/L BUN 11 (7-18) mg/dL Creatinine 0.8 (0.8-1.3) mg/dL Est Cr Clr Drug Dosing TNP Estimated GFR (MDRD) > 60 (>60) Glucose 127 H (74-106) mg/dL Calcium 9.1 (8.5-10.1) mg/dL Total Bilirubin 0.4 (0.2-1.0) mg/dL AST 27 (15-37) U/L ALT 32 (12-78) U/L Alkaline Phosphatase 38 L (46-116) U/L Total Protein 6.4 (6.4-8.2) g/dL Albumin 3.3 L (3.4-5.0) g/dL Globulin 3.1 (2.3-3.5) g/dL Albumin/Globulin Ratio 1.1 L (1.2-2.2) Lipase 130 (73-393) U/L Meds: Medications Generic Name Dose Route Start Last Admin Trade Name Freq PRN Reason Stop Dose Admin Sodium Chloride 80 mls @ 3 mls/sec 03/01/17 18:00 03/01/17 18:31 Normal Saline IV 3 mls/sec ASDIRECTED CHRIS Administration Iopamidol 150 ml 03/01/17 18:00 03/01/17 18:31 Isovue-300 (61%) IV 150 ml . DIRECTED CHRIS Administration Sodium Chloride 10 ml 03/01/17 17:58 03/01/17 18:28 Saline Flush FLUSH 10 ml ASDIRECTED PRN Administration Keep Vein Open Departure - Departure Time of Disposition: 19:35 Disposition: Home, Self-Care 01 Clinical Impression: Abdominal pain - Discharge Information Forms: ED Department Discharge - Problem List Review Problem List Initiated/Reviewed/Updated: Yes - My Orders Last 24 Hours: My Active Orders 03/01/17 17:26 Up With Assistance [RC] ASDIRECTED Vital Signs [RC] Q2H Abdomen Pelvis w Cont [CT] Urgent 03/01/17 17:58 Sodium Chloride 0.9% [Saline Flush] 10 ml FLUSH ASDIRECTED PRN 03/01/17 18:00 Iopamidol [Isovue-300 (61%)] 150 ml IV . DIRECTED Sodium Chloride 0.9% [Normal Saline] 80 ml IV ASDIRECTED - Assessment/Plan Last 24 Hours: My Active Orders 03/01/17 17:26 Up With Assistance [RC] ASDIRECTED Vital Signs [RC] Q2H Abdomen Pelvis w Cont [CT] Urgent 03/01/17 17:58 Sodium Chloride 0.9% [Saline Flush] 10 ml FLUSH ASDIRECTED PRN 03/01/17 18:00 Iopamidol [Isovue-300 (61%)] 150 ml IV . DIRECTED Sodium Chloride 0.9% [Normal Saline] 80 ml IV ASDIRECTED Assessment:: presents with abdominal pain over past 2 months. Admitted in early January for heart work-up, hx of hernia repair with mesh last year Labwork was normal. CT of abdomen was normal, no signs of issues with hernia repair Plan: Home with OP follow-up. Consider that he might have a nerve impingment from previous surgery. Will ask his PMD for possible anesthesia or pain clinic referral
[2017-03-01] MEDS ORDERED: Sodium Chloride 0.9% 10 ML Syringe FLUSH PRN (17:58)
[2017-03-01] MEDS ORDERED: Iopamidol 612 MG/ML 150 ML Bottle IV SCH (18:00)
[2017-03-01] MEDS ORDERED: Sodium Chloride 0.9% 80 ML IV SCH (18:00)
[2017-03-01 19:43] VITALS: BP 158/95
== END 2017-03-01 19:53 | disposition home or self-care (01) ==
LOC: JP.ED 15:30
DX: R10.9 Unspecified abdominal pain (principal); I10 Essential (primary) hypertension; J44.9 Chronic obstructive pulmonary disease, unspecified; E11.9 Type 2 diabetes mellitus without complications; E66.9 Obesity, unspecified; Z98.890 Other specified postprocedural states; Z79.01 Long term (current) use of anticoagulants; Z79.899 Other long term (current) drug therapy; Z86.718 Personal history of other venous thrombosis and embolism; Z95.0 Presence of cardiac pacemaker
CPT/HCPCS: 36415; 74177; 80053; 83690; 85027; 99284; J7030; J7050

== ENCOUNTER 2017-03-26 05:57 | Observation (INO) | payer MEDICARE, BC ==
[2017-03-26] MEDS ORDERED: Bupivacaine 0.5%/EPINEPHrine 1:200,000 50 ML MDV ONE (06:46)
[2017-03-26] MEDS ORDERED: Lidocaine 1% 50 ML MDV ONE (06:46)
[2017-03-26] MEDS: Lactated Ringers 1,000 ML IV SCH ×2 (07:10→12:07)
[2017-03-26] MEDS ORDERED: cefOXitin 2 GM in Sodium Chloride 0.9% 50 ML IV ONE (07:30)
[2017-03-26] MEDS ORDERED: Propofol 200 MG/20 ML SDV ONE (07:31)
[2017-03-26] MEDS ORDERED: Dexamethasone 4 MG/ML SDV ONE (07:31)
[2017-03-26] MEDS ORDERED: fentaNYL 250 MCG/5 ML SDV ONE ×2 (07:31→08:14)
[2017-03-26] MEDS ORDERED: Succinylcholine/Normal Saline 200 MG/10 ML Syringe ONE (07:31)
[2017-03-26] MEDS ORDERED: Neostigmine Methylsulfate 1 MG/ML 5 ML Syringe ONE (07:31)
[2017-03-26] MEDS ORDERED: Ondansetron 4 MG/2 ML SDV ONE (07:31)
[2017-03-26] MEDS ORDERED: Rocuronium 50 MG/5 ML Vial ONE (07:31)
[2017-03-26] MEDS ORDERED: Metoprolol Succinate 50 MG Tab.ER PO ONE (07:34)
[2017-03-26] MEDS ORDERED: Naloxone 0.4 MG/ML SDV ONE (07:59)
[2017-03-26] MEDS ORDERED: Ondansetron 4 MG/2 ML SDV IVPUSH PRN (09:22)
[2017-03-26] MEDS ORDERED: hydrOXYzine HCl 100 MG/2 ML SDV IM PRN (09:22)
[2017-03-26] MEDS ORDERED: HYDROmorphone/Normal Saline 15 MG/30 ML PCA IV SCH (09:30)
[2017-03-26] MEDS ORDERED: Naloxone 0.4 MG/ML SDV IV PRN (09:35)
[2017-03-26] MEDS: Insulin Aspart 100 Units/ML 3 ML Pen SUBCUT SCH ×3 (12:35→22:03)
[2017-03-26] MEDS ORDERED: Dextrose 5%-0.225% NaCl w/KCl 1,000 ML IV SCH (13:45)
[2017-03-26] MEDS: Albuterol 8 GM Inhaler INH SCH ×3 (13:47→23:28)
[2017-03-26] MEDS: D5 1/2 NS w/ 20 mEq/L KCl 1,000 ML IV SCH ×2 (14:36→22:02)
[2017-03-26] MEDS: Acetaminophen/HYDROcodone 325-5 MG Tab PO PRN ×2 (19:04→20:26)
[2017-03-26] MEDS: Calcium Carbonate/Vitamin D3 1500 MG-400 Units Tab PO SCH (20:27)
[2017-03-26] MEDS ORDERED: Lidocaine 2% Jelly 10 ML Urojet MUCMEM ONE (22:35)
[2017-03-26] MEDS ORDERED: Lidocaine 2% Jelly 10 ML Urojet ONE (22:40)
[2017-03-27] MEDS: Acetaminophen/HYDROcodone 325-5 MG Tab PO PRN ×6 (00:37→21:50)
[2017-03-27] MEDS: Cyclobenzaprine 10 MG Tab PO PRN ×2 (00:50→18:43)
[2017-03-27] MEDS: Albuterol 8 GM Inhaler INH SCH ×4 (05:36→23:10)
[2017-03-27] MEDS: D5 1/2 NS w/ 20 mEq/L KCl 1,000 ML IV SCH (05:39)
--- NOTE | 2017-03-27 06:26 | PCM.SURGPN ---
- General Info Date of Service: 03/27/17 Date of Surgery/Procedure: 03/26/17 POD#: 1 Post-Op Diagnosis: Chronic cholecystitis with biliary dyskinesia Functional Status: Reports: pain controlled, tolerating diet, urinating (Needed to have Wright catheter placed for urinary retention with over 600 ml's in his bladder. ) - Review of Systems General: Reports: No Symptoms Pulmonary: Reports: no symptoms Cardiovascular: Reports: No Symptoms Gastrointestinal: Reports: No symptoms. Denies: Flatus Genitourinary: Reports: retention Musculoskeletal: Reports: no symptoms Skin: Reports: no symptoms Neurological: Reports: No Symptoms Psychiatric: Reports: no symptoms - Patient Data Vitals - most recent: Last Vital Signs Temp 98.2 F 03/27/17 02:00 Pulse 71 03/27/17 02:00 Resp 12 03/27/17 02:00 BP 122/71 03/27/17 02:00 Pulse Ox 98 03/27/17 02:00 Weight - most recent: 343 lb 0.7 oz I&O - last 24 hours: Intake & Output 03/26/17 03/26/17 03/27/17 14:59 22:59 06:59 Intake Total 1890 2370 2904 Output Total 1475 Balance 1890 2370 1429 Lab Results last 24 hrs: Laboratory Results - last 24 hr 03/26/17 03/26/17 03/26/17 Range/Units 06:53 06:53 17:00 WBC 7.3 14.9 H (4.5-11.0) K/uL RBC 4.43 4.53 (4.30-5.90) M/uL Hgb 15.0 15.5 H (12.0-15.0) g/dL Hct 44.8 46.7 (40.0-54.0) % MCV 101 H 103 H (80-98) fL MCH 34 H 34 H (27-31) pg MCHC 34 33 (32-36) % Plt Count 169 197 (150-400) K/uL PT (9.5-12.0) sec INR (0.80-1.20) Sodium 141 (140-148) mmol/L Potassium 4.3 (3.6-5.2) mmol/L Chloride 104 (100-108) mmol/L Carbon Dioxide 28 (21-32) mmol/L Anion Gap 8.6 (5.0-14.0) mmol/L BUN 12 (7-18) mg/dL Creatinine 0.9 (0.8-1.3) mg/dL Est Cr Clr Drug Dosing 95.14 mL/min Estimated GFR (MDRD) > 60 (>60) Glucose 144 H (74-106) mg/dL Calcium 8.8 (8.5-10.1) mg/dL Total Bilirubin 0.6 (0.2-1.0) mg/dL AST 23 (15-37) U/L ALT 18 (12-78) U/L Alkaline Phosphatase 43 L (46-116) U/L Total Protein 6.7 (6.4-8.2) g/dL Albumin 3.2 L (3.4-5.0) g/dL Globulin 3.5 (2.3-3.5) g/dL Albumin/Globulin Ratio 0.9 L (1.2-2.2) 03/27/17 03/27/17 03/27/17 Range/Units 05:00 05:00 05:00 WBC 11.8 H (4.5-11.0) K/uL RBC 4.03 L (4.30-5.90) M/uL Hgb 13.9 (12.0-15.0) g/dL Hct 42.0 (40.0-54.0) % MCV 104 H (80-98) fL MCH 35 H (27-31) pg MCHC 33 (32-36) % Plt Count 163 (150-400) K/uL PT 11.3 (9.5-12.0) sec INR 1.05 (0.80-1.20) Sodium 136 L (140-148) mmol/L Potassium 4.9 (3.6-5.2) mmol/L Chloride 101 (100-108) mmol/L Carbon Dioxide 30 (21-32) mmol/L Anion Gap 9.9 (5.0-14.0) mmol/L BUN 15 (7-18) mg/dL Creatinine 1.1 (0.8-1.3) mg/dL Est Cr Clr Drug Dosing 77.84 mL/min Estimated GFR (MDRD) > 60 (>60) Glucose 153 H (74-106) mg/dL Calcium 8.8 (8.5-10.1) mg/dL Total Bilirubin 0.7 (0.2-1.0) mg/dL AST 46 H D (15-37) U/L ALT 43 D (12-78) U/L Alkaline Phosphatase 41 L (46-116) U/L Total Protein 6.6 (6.4-8.2) g/dL Albumin 3.2 L (3.4-5.0) g/dL Globulin 3.4 (2.3-3.5) g/dL Albumin/Globulin Ratio 0.9 L (1.2-2.2) Iban Results last 24 hrs: Microbiology 03/26/17 09:25 Gram Stain - Final Gallbladder Wound Culture - Preliminary NO GROWTH AFTER 1 DAY Anaerobic Culture - Preliminary NO GROWTH AFTER 1 DAY Med Orders - Current: Current Medications Hydrocodone Bitart/Acetaminophen ([place] 325-5 Mg) 1 - 2 tab PO Q4H PRN PRN Reason: Pain Last Admin: 03/27/17 04:51 Dose: 2 tab Albuterol (Ventolin Hfa) 0 gm INH Q6H [facility] Last Admin: 03/27/17 05:36 Dose: 2 puff Allopurinol (Zyloprim) 300 mg PO DAILY [facility] Ascorbic Acid (Vitamin C) 1,000 mg PO DAILY [facility] Calcium Carbonate (Caltrate 600+D 1500 Mg-400 Units) 1 tab PO BID [facility] Last Admin: 03/26/17 20:27 Dose: 1 tab Cyclobenzaprine HCl (Flexeril) 10 mg PO TID PRN PRN Reason: Muscle Spasm Last Admin: 03/27/17 00:50 Dose: 10 mg Furosemide (Lasix) 40 mg PO DAILY [facility] Hydromorphone HCl (Dilaudid Popped Corn Oven Attendant 15 Mg In Ns 30 Ml) 0 mg IV ASDIRECTED [facility] PRN Reason: Protocol Hydroxyzine HCl (Vistaril) 50 mg IM Q4H PRN PRN Reason: Nausea Potassium Chloride/Dextrose/Sod Cl (D5 1/2 Ns W/ 20 Meq/L Kcl) 1,000 mls @ 125 mls/hr IV ASDIRECTED [facility] Last Admin: 03/27/17 05:39 Dose: 125 mls/hr Insulin Aspart (Novolog) 0 unit SUBCUT ASDIRECTED [facility] PRN Reason: Protocol Last Admin: 03/26/17 22:03 Dose: 3 units Lisinopril (Prinivil) 10 mg PO DAILY [facility] Magnesium Oxide (Magnesium Oxide) 400 mg PO DAILY [facility] Metoprolol Succinate (Toprol Xl) 50 mg PO DAILY [facility] Mometasone Furoate (Asmanex 110 Mcg) 0 puff INH DAILY@0700 [facility] Naloxone HCl (Narcan) 0.1 mg IV ASDIRECTED PRN PRN Reason: decreased respiratory rate Chromium Cinnamon ( (Ptom)) 200 - 1,000 tab PO DAILY [facility] Ondansetron HCl (Zofran) 4 mg IVPUSH Q6H PRN PRN Reason: Nausea/Vomiting Potassium Chloride (Klor-Con M20) 20 meq PO DAILY@0800 [facility] Tiotropium [place] (Spiriva Handihaler) 18 mcg INH DAILY@0730 [facility] Discontinued Medications Bupivacaine HCl/Epinephrine Bitart (Marcaine 0.5%/Epinephrine 1:200,000) Confirm Administered Dose 50 ml .ROUTE .STK-MED ONE Stop: 03/26/17 06:47 Last Admin: 03/26/17 08:33 Dose: 10 ml Dexamethasone (Dexamethasone) Confirm Administered Dose 4 mg .ROUTE .STK-MED ONE Stop: 03/26/17 07:32 Fentanyl (Sublimaze) Confirm Administered Dose 250 mcg .ROUTE .STK-MED ONE Stop: 03/26/17 07:32 Fentanyl (Sublimaze) Confirm Administered Dose 250 mcg .ROUTE .STK-MED ONE Stop: 03/26/17 08:15 Glycopyrrolate () Confirm Administered Dose 1 mg .ROUTE .STK-MED ONE Stop: 03/26/17 07:32 Lactated Ringer's (Ringers, Lactated) 1,000 mls @ 0 mls/hr IV ASDIRECTED [facility] PRN Reason: KVO Last Admin: 03/26/17 12:07 Dose: 25 mls/hr Cefoxitin Sodium 2 gm/ Sodium (Chloride) 50 mls @ 100 mls/hr IV ONETIME ONE Stop: 03/26/17 07:59 Last Admin: 03/26/17 07:41 Dose: 100 mls/hr Lidocaine HCl (Xylocaine 1%) Confirm Administered Dose 50 ml .ROUTE .STK-MED ONE Stop: 03/26/17 06:47 Last Admin: 03/26/17 08:33 Dose: 10 ml Lidocaine HCl (Xylocaine 2% Jelly) 10 ml MUCMEM ONETIME ONE Stop: 03/26/17 22:36 Last Admin: 03/26/17 22:50 Dose: 10 ml Lidocaine HCl (Xylocaine 2% Jelly) Confirm Administered Dose 10 ml .ROUTE .STK- MED ONE Stop: 03/26/17 22:41 Last Admin: 03/26/17 22:50 Dose: Not Given Metoprolol Succinate (Toprol Xl) 50 mg PO ONETIME ONE Stop: 03/26/17 07:35 Last Admin: 03/26/17 07:39 Dose: 50 mg Naloxone HCl (Narcan) Confirm Administered Dose 0.4 mg .ROUTE .STK-MED ONE Stop: 03/26/17 08:00 Neostigmine Methylsulfate (Neostigmine) Confirm Administered Dose 5 mg .ROUTE .STK-MED ONE Stop: 03/26/17 07:32 Ondansetron HCl (Zofran) Confirm Administered Dose 4 mg .ROUTE .STK-MED ONE Stop: 03/26/17 07:32 Propofol (Diprivan 20 Ml) Confirm Administered Dose 200 mg .ROUTE .STK-MED ONE Stop: 03/26/17 07:32 Rocuronium Phoenix (Zemuron) Confirm Administered Dose 50 mg .ROUTE .STK-MED ONE Stop: 03/26/17 07:32 Succinylcholine Chloride (Succinylcholine In Ns Pf) Confirm Administered Dose 200 mg .ROUTE .STK-MED ONE Stop: 03/26/17 07:32 - Exam Wound/Incisions: healing well, no drainage Quality Assessment: supplemental oxygen, urine catheter, DVT prophylaxis General: oriented, lethargic Lungs: Clear to auscultation, Normal respiratory effort Cardiovascular: Regular Rate, Regular Rhythm Abdomen: soft, no tenderness, no distension Extremities: no edema Skin: warm, dry, intact Neurological: no new focal deficit Psy/Mental Status: normal affect, normal mood, other (He is a little lethargic. ) - Problem List & Annotations (1) Chronic cholecystitis without calculus SNOMED Code(s): 83967870 Code(s): K81.1 - CHRONIC CHOLECYSTITIS Status: Acute Current Visit: Yes - Problem List Review Problem List Initiated/Reviewed/Updated: Yes - My Orders Last 24 Hours: Active Orders 24 hr Category Date Time Status Patient Status [ADT] Routine ADT 03/26/17 09:23 Active Accu Check [Blood Glucose Check, Bedside] [RC] Care 03/26/17 09:33 Active QIDACANDBED Ambulate [RC] ASDIRECTED Care 03/26/17 09:22 Active Antiembolic Devices [RC] .Routine Care 03/26/17 09:28 Active Blood Glucose Check, Bedside [RC] QIDACANDBED Care 03/26/17 09:22 Inactive Blood Glucose Check, Bedside [RC] QIDACANDBED Care 03/26/17 09:22 Inactive Communication Order [RC] Q8H Care 03/26/17 18:02 Active Diabetes Education [RC] Click to Edit Care 03/26/17 09:27 Active Incentive Spirometry [RT Incentive Spirometry] [RC] Care 03/26/17 07:30 Active ASDIRECTED Insert Wright Catheter [Insert Urinary Catheter] [OM.PC] Care 03/26/17 22:45 Ordered Q24H Notify Provider Vital Signs [RC] PRN Care 03/26/17 09:24 Active Notify Provider [RC] PRN Care 03/26/17 09:31 Active Oxygen Therapy [RC] PRN Care 03/26/17 09:23 Active Pulse Oximetry [RC] CONTINUOUS Care 03/26/17 09:24 Active Up With Assistance [RC] ASDIRECTED Care 03/26/17 09:22 Active Up to Chair [RC] ASDIRECTED Care 03/26/17 09:22 Active Urinary Catheter Assessment [RC] ASDIRECTED Care 03/26/17 22:34 Active VTE/DVT Education [RC] Click to Edit Care 03/26/17 09:28 Active Respiratory Care Assess and Treatment [CONS] Routine Cons 03/26/17 09:22 Active Advance Diet Instructions [DIET] Diet 03/26/17 Lunch Active CULTURE ANAEROBIC [RM] Routine Lab 03/26/17 09:25 Results CULTURE WOUND + SMEAR [RM] Routine Lab 03/26/17 09:25 Results GLUCOSE POC LAB TO COLLECT [POC] QIDACANDBED Lab 03/27/17 07:30 Ordered GLUCOSE POC LAB TO COLLECT [POC] QIDACANDBED Lab 03/27/17 11:30 Ordered GLUCOSE POC LAB TO COLLECT [POC] QIDACANDBED Lab 03/27/17 16:30 Ordered GLUCOSE POC LAB TO COLLECT [POC] QIDACANDBED Lab 03/27/17 21:00 Ordered GLUCOSE POC LAB TO COLLECT [POC] QIDACANDBED Lab 03/28/17 07:30 Ordered GLUCOSE POC LAB TO COLLECT [POC] QIDACANDBED Lab 03/28/17 11:30 Ordered GLUCOSE POC LAB TO COLLECT [POC] QIDACANDBED Lab 03/28/17 16:30 Ordered GLUCOSE POC LAB TO COLLECT [POC] QIDACANDBED Lab 03/28/17 21:00 Ordered GLUCOSE POC LAB TO COLLECT [POC] QIDACANDBED Lab 03/29/17 07:30 Ordered GLUCOSE POC LAB TO COLLECT [POC] QIDACANDBED Lab 03/29/17 11:30 Ordered GLUCOSE POC LAB TO COLLECT [POC] QIDACANDBED Lab 03/29/17 16:30 Ordered GLUCOSE POC LAB TO COLLECT [POC] QIDACANDBED Lab 03/29/17 21:00 Ordered GLUCOSE POC LAB TO COLLECT [POC] QIDACANDBED Lab 03/30/17 07:30 Ordered Acetaminophen/HYDROcodone [Penning[place] 325-5 MG] Med 03/26/17 17:56 Active 1 - 2 tab PO Q4H PRN Albuterol [Ventolin HFA] Med 03/26/17 12:00 Active 0 gm INH Q6H Allopurinol [Zyloprim] Med 03/27/17 09:00 Active 300 mg PO DAILY Ascorbic Acid [Vitamin C] Med 03/27/17 09:00 Active 1,000 mg PO DAILY Calcium Carbonate/Vitamin D3 [Caltrate 600+D 1500 MG- Med 03/26/17 21:00 Active 400 Units] 1 tab PO BID Chromium Cinnamon Med 03/27/17 09:00 Active 200 - 1,000 tab PO DAILY Cyclobenzaprine [Flexeril] Med 03/26/17 09:18 Active 10 mg PO TID PRN D5 1/2 NS w/ 20 mEq/L KCl 1,000 ml Med 03/26/17 14:30 Active IV ASDIRECTED Furosemide [Lasix] Med 03/27/17 09:00 Active 40 mg PO DAILY HYDROmorphone/Normal Saline [Dilaudid [employer] 15 MG in NS Med 03/26/17 09:30 Active 30 ML] 0 mg IV ASDIRECTED Insulin Aspart [NovoLOG] Med 03/26/17 09:30 Active See Protocol SUBCUT ASDIRECTED Lisinopril [Prinivil] Med 03/27/17 09:00 Active 10 mg PO DAILY Magnesium Oxide Med 03/27/17 09:00 Active 400 mg PO DAILY Metoprolol Succinate [Toprol XL] Med 03/27/17 09:00 Active 50 mg PO DAILY Mometasone Furoate [Asmanex 110 MCG] Med 03/27/17 07:00 Active 0 puff INH DAILY@0700 Naloxone [Narcan] Med 03/26/17 09:35 Active 0.1 mg IV ASDIRECTED PRN Ondansetron [Zofran] Med 03/26/17 09:22 Active 4 mg IVPUSH Q6H PRN Potassium Chloride [Klor-Con M20] Med 03/27/17 08:00 Active 20 meq PO DAILY@0800 Tiotropium [Spiriva HandiHaler] Med 03/27/17 07:30 Active 18 mcg INH DAILY@0730 hydrOXYzine HCl [Vistaril] Med 03/26/17 09:22 Active 50 mg IM Q4H PRN Abdominal Binder [OM.PC] Per Unit Routine Ot 03/26/17 09:24 Ordered Antiembolic Hose [OM.PC] Routine Ot 03/26/17 09:22 Ordered DVT/VTE Prophylaxis Reflex [OM.PC] Per Unit Routine Ot 03/26/17 09:27 Ordered Glucose Management Sub Q Reflex [OM.PC] QIDACANDBED [facility] 03/26/17 11:30 Ordered Glucose Management Sub Q Reflex [OM.PC] QIDACANDBED Ot 03/26/17 16:30 Ordered Glucose Management Sub Q Reflex [OM.PC] QIDACANDBED [facility] 03/26/17 21:00 Ordered Glucose Management Sub Q Reflex [OM.PC] QIDACANDBED Ot 03/27/17 07:30 Ordered Glucose Management Sub Q Reflex [OM.PC] QIDACANDBED Ot 03/27/17 11:30 Ordered Glucose Management Sub Q Reflex [OM.PC] QIDACANDBED [facility] 03/27/17 16:30 Ordered Glucose Management Sub Q Reflex [OM.PC] QIDACANDBED Ot 03/27/17 21:00 Ordered Glucose Management Sub Q Reflex [OM.PC] QIDACANDBED Ot 03/28/17 07:30 Ordered Glucose Management Sub Q Reflex [OM.PC] QIDACANDBED Oth 03/28/17 11:30 Ordered Glucose Management Sub Q Reflex [OM.PC] QIDACANDBED Oth 03/28/17 16:30 Ordered Sequential Compression Device [OM.PC] Routine Oth 03/26/17 07:30 Ordered Resuscitation Status Routine Resus Stat 03/26/17 09:22 Ordered Medication Orders Hydrocodone Bitart/Acetaminophen ([place] 325-5 Mg) 1 - 2 tab PO Q4H PRN PRN Reason: Pain Last Admin: 03/27/17 04:51 Dose: 2 tab Admin: 03/27/17 00:37 Dose: 2 tab Admin: 03/26/17 20:26 Dose: 1 tab Admin: 03/26/17 19:04 Dose: 1 tab Albuterol (Ventolin Hfa) 0 gm INH Q6H [facility] Last Admin: 03/27/17 05:36 Dose: 2 puff Admin: 03/26/17 23:28 Dose: 2 puff Admin: 03/26/17 17:20 Dose: 2 puff Admin: 03/26/17 13:47 Dose: 2 puff Allopurinol (Zyloprim) 300 mg PO DAILY [facility] Ascorbic Acid (Vitamin C) 1,000 mg PO DAILY [facility] Calcium Carbonate (Caltrate 600+D 1500 Mg-400 Units) 1 tab PO BID [facility] Last Admin: 03/26/17 20:27 Dose: 1 tab Cyclobenzaprine HCl (Flexeril) 10 mg PO TID PRN PRN Reason: Muscle Spasm Last Admin: 03/27/17 00:50 Dose: 10 mg Furosemide (Lasix) 40 mg PO DAILY [facility] Hydromorphone HCl (Dilaudid Popped Corn Oven Attendant 15 Mg In Ns 30 Ml) 0 mg IV ASDIRECTED [facility] PRN Reason: Protocol Hydroxyzine HCl (Vistaril) 50 mg IM Q4H PRN PRN Reason: Nausea Potassium Chloride/Dextrose/Sod Cl (D5 1/2 Ns W/ 20 Meq/L Kcl) 1,000 mls @ 125 mls/hr IV ASDIRECTED [facility] Last Admin: 03/27/17 05:39 Dose: 125 mls/hr Infusion: 03/27/17 05:39 Dose: 125 mls/hr Admin: 03/26/17 22:02 Dose: 125 mls/hr Infusion: 03/26/17 22:02 Dose: 125 mls/hr Admin: 03/26/17 14:36 Dose: 125 mls/hr Insulin Aspart (Novolog) 0 unit SUBCUT ASDIRECTED [facility] PRN Reason: Protocol Last Admin: 03/26/17 22:03 Dose: 3 units Admin: 03/26/17 17:11 Dose: 2 units Admin: 03/26/17 12:35 Dose: 2 units Lisinopril (Prinivil) 10 mg PO DAILY [facility] Magnesium Oxide (Magnesium Oxide) 400 mg PO DAILY [facility] Metoprolol Succinate (Toprol Xl) 50 mg PO DAILY [facility] Mometasone Furoate (Asmanex 110 Mcg) 0 puff INH DAILY@0700 [facility] Naloxone HCl (Narcan) 0.1 mg IV ASDIRECTED PRN PRN Reason: decreased respiratory rate Chromium Cinnamon ( (Ptom)) 200 - 1,000 tab PO DAILY [facility] Ondansetron HCl (Zofran) 4 mg IVPUSH Q6H PRN PRN Reason: Nausea/Vomiting Potassium Chloride (Klor-Con M20) 20 meq PO DAILY@0800 [facility] Tiotropium Phoenix (Spiriva Handihaler) 18 mcg INH DAILY@0730 [facility] - Assessment Assessment (Free Text/Narrative):: Could not void so Wright was placed. Taking a lot of fluid without problems, but no flatus/BM. T bili good. - Plan Plan (Free Text/Narrative):: Trial of D/C Wright. Dulcolax supp. Turn down IV.
[2017-03-27] MEDS ORDERED: D5 1/2 NS w/ 20 mEq/L KCl 1,000 ML IV SCH (06:30)
[2017-03-27] MEDS: Tiotropium Inhaler 18 MCG Inhalation Powder Cap Kit of 5 INH SCH (07:49)
[2017-03-27] MEDS: MOMETASONE FUROATE INH SCH (07:51)
[2017-03-27] MEDS: Potassium Chloride 20 MEQ Tab.ER PO SCH (07:55)
[2017-03-27] MEDS: Insulin Aspart 100 Units/ML 3 ML Pen SUBCUT SCH ×2 (08:10→16:50)
[2017-03-27] MEDS: Ascorbic Acid 500 MG Tab PO SCH (08:41)
[2017-03-27] MEDS: Lisinopril 10 MG Tab PO SCH (08:41)
[2017-03-27] MEDS: Allopurinol 300 MG Tab PO SCH (08:41)
[2017-03-27] MEDS: Magnesium Oxide 400 MG Tab PO SCH (08:43)
[2017-03-27] MEDS: Furosemide 40 MG Tab PO SCH (08:44)
[2017-03-27] MEDS: Metoprolol Succinate 50 MG Tab.ER PO SCH (08:44)
[2017-03-27] MEDS: [UNRECOGNIZED DRUG - OTHER] PO SCH (08:45)
[2017-03-27] MEDS: Calcium Carbonate/Vitamin D3 1500 MG-400 Units Tab PO SCH ×2 (08:46→20:06)
[2017-03-27] MEDS: Bisacodyl 10 MG Supp RECTAL SCH (09:09)
--- NOTE | 2017-03-27 10:40 | OR ---
DATE OF PROCEDURE: 03/26/2017 PREOPERATIVE DIAGNOSIS: 1. Chronic cholecystitis with biliary dyskinesia. 2. Fatty liver. POSTOPERATIVE DIAGNOSIS: 1. Chronic cholecystitis with biliary dyskinesia. 2. Fatty liver. PROCEDURE: Laparoscopic cholecystectomy. SURGEON: Miguel Pathak MD. ANESTHESIA: General endotracheal. INDICATION: This is a 66-year-old white male who complains of intermittent episodes of right upper quadrant abdominal pain occasionally with nausea. Ultrasound and CAT scan of his abdomen were unremarkable. A CCK-stimulated HIDA scan was abnormal in that the ejection fraction is only 5% consistent with biliary dyskinesia and chronic cholecystitis. His liver functions were unremarkable. He is admitted for a laparoscopic cholecystectomy. I counseled him for surgery including risks and alternatives, and he gave his informed consent to proceed. DESCRIPTION OF PROCEDURE: After adequate general endotracheal anesthesia was obtained, the patient's abdomen was prepped and draped in the usual sterile fashion. Time -out was held. The leg compression stockings were in place and used during the entire procedure. An epigastric incision was made and through this incision a 12 mm port was introduced into the abdomen using the Optiview technique. This site was used because he has a mesh in place from a prior incisional hernia repair measuring 10 x 15 cm. The abdomen was insufflated to a pressure of 15 mmHg with carbon dioxide and the camera was introduced into the abdomen. No evidence of intraabdominal injury was seen. Under direct vision, a 12-mm port was placed in the right lower quadrant and lateral to this a 5 mm port was placed also in the right lower quadrant. A small skin incision was made in the right upper quadrant. He did appear to have a fatty liver and this was seen also on radiographic studies. Through this incision, a Jose Luis-Cut liver biopsy was obtained. The specimen was placed on a Telfa pad and sent to pathology. The Jose Luis-Cut liver biopsy site was cauterized, which achieved hemostasis. The gallbladder was then grasped and elevated. The cystic duct and arteries were dissected free. The cystic duct was divided right up on the gallbladder and then three times proximally and divided between clips. The cystic artery was also clipped up on the gallbladder and several times proximally and divided between clips. The gallbladder was then dissected free from the gallbladder bed using Bovie electrocautery. It was placed in a sample retrieval bag and elevated up through the anterior abdominal wall via the epigastric port site. It was delivered from the field where it was cultured. It was noted to contain no stones. The epigastric port was re-introduced back in the abdomen. The gallbladder bed was irrigated and suctioned dry. Hemostasis was noted. The fascial closure device was used to place an 0 Vicryl stitch in the epigastric fascial defect. We did not tie the stitch down. The port was reintroduced back into the abdomen and then under direct vision, the 12 mm port site in the right lower quadrant was closed with interrupted stitch of 0 Vicryl using the fascial closure device. Both the stitches were then tied down. We evacuated as much of the CO2 from the abdomen as we could via the 5 mm port site in the right lower quadrant and then this port was removed. Lidocaine 1% plain in a 50:50 mix with 0.5% Marcaine with epinephrine was infiltrated about all incisions. The skin incisions were closed with subcuticular stitches of 4-0 Vicryl. Dermabond was applied. The anesthesia was reversed. He was extubated and brought to the recovery room in good condition. Miguel Pathak MD /[id number] PARDEEP
[2017-03-27] MEDS ORDERED: hydrOXYzine HCl 100 MG/2 ML SDV ONE (16:45)
[2017-03-27] MEDS ORDERED: Acetaminophen/HYDROcodone 325-5 MG Tab ONE (17:19)
[2017-03-27] MEDS ORDERED: Tamsulosin 0.4 MG Cap.ER PO SCH (21:00)
[2017-03-28] MEDS: Albuterol 8 GM Inhaler INH SCH ×2 (05:45→11:39)
[2017-03-28] MEDS: Acetaminophen/HYDROcodone 325-5 MG Tab PO PRN ×2 (05:50→10:12)
[2017-03-28] MEDS: Tiotropium Inhaler 18 MCG Inhalation Powder Cap Kit of 5 INH SCH (07:14)
[2017-03-28] MEDS: MOMETASONE FUROATE INH SCH (07:16)
[2017-03-28 07:30] VITALS: BP 123/77
[2017-03-28] MEDS: Potassium Chloride 20 MEQ Tab.ER PO SCH (07:49)
[2017-03-28] MEDS: Lisinopril 10 MG Tab PO SCH (08:39)
[2017-03-28] MEDS: Allopurinol 300 MG Tab PO SCH (08:40)
[2017-03-28] MEDS: Ascorbic Acid 500 MG Tab PO SCH (08:40)
[2017-03-28] MEDS: Metoprolol Succinate 50 MG Tab.ER PO SCH (08:40)
[2017-03-28] MEDS: Calcium Carbonate/Vitamin D3 1500 MG-400 Units Tab PO SCH (08:41)
[2017-03-28] MEDS: Magnesium Oxide 400 MG Tab PO SCH (08:41)
[2017-03-28] MEDS: [UNRECOGNIZED DRUG - OTHER] PO SCH (08:41)
[2017-03-28] MEDS: Bisacodyl 10 MG Supp RECTAL SCH (08:41)
[2017-03-28] MEDS: Furosemide 40 MG Tab PO SCH (08:41)
--- NOTE | 2017-03-28 13:06 | PCM.DCSUM1 ---
Discharge Summary - Hospital Course Free Text/Narrative:: This 66 year old white male was admitted two days ago for a laparoscopic cholecystectomyl. He has been complaining of right upper quadrant abdominal pain with CT and US studies negative. A CCK stimulated HIDA was abnormal with an ejection fraction of only 5%. His CT and US showed what appeared to be a fatty liver. He underwent the laparoscopic cholecystectomy with Jose Luis-cut liver biopsy on March 26, 2017. He ended up staying in the hospital for two days due to transient lethargy, difficulty voiding and problems eating. He is now discharged home in good condition. Brief History: See above narrative. - Discharge Data Discharge Date: 03/28/17 Discharge Disposition: Home, Self-Care 01 Condition: Good - Discharge Diagnosis/Problem(s) (1) Chronic cholecystitis without calculus SNOMED Code(s): 96596902 ICD Code: K81.1 - CHRONIC CHOLECYSTITIS Status: Acute Current Visit: Yes - Patient Summary/Data Operative Procedure(s) Performed: See above narrative Consults: Consultations 03/26/17 09:22 Respiratory Care Assess and Treatment [CONS] Routine Comment: Physician Instructions: Cough, deep breath, IS q 1 hour while awake. Hospital Course: See above narrative. - Patient Instructions Diet: Usual Diet as Tolerated Activity: No Strenuous Activities (For two weeks. ) Driving, Other: Do not drive while taking narcotic pain medication. Showering/Bathing: May Shower, No Tub Bathing/Swimming Notify Provider of: Fever, Increased Pain, Swelling and Redness, Drainage, Nausea and/or Vomiting - Discharge Plan Prescriptions/Med Rec: Acetaminophen/HYDROcodone [Peosta 325-5 MG] 1 - 2 tab PO Q4H PRN #30 tablet PRN Reason: Abdominal Pain Home Medications: Home Meds Metoprolol Succinate 50 mg PO DAILY 03/09/14 [History] Warfarin [Coumadin] 3.5 mg PO ASDIRECTED 03/09/14 [History] Warfarin [Coumadin] 5 mg PO ASDIRECTED 03/09/14 [History] Tiotropium [Spiriva HandiHaler] 1 puff INH DAILY 03/22/16 [History] Albuterol Sulfate [Proair Hfa] 2 puff IH Q6H PRN 04/05/16 [History] Chromium Cinnamon 200 - 1,000 tab PO DAILY 04/05/16 [History] Fluticasone Propionate [Flovent HFA 44 mcg] 2 puff IH BID 04/05/16 [History] Furosemide [Lasix] 40 mg PO DAILY 04/05/16 [History] Lisinopril 10 mg PO DAILY 04/05/16 [History] Calcium Carbonate/Vitamin D3 [Calcium 600 + Vit D 400 Softgl] 1 each PO BID [History] Cyclobenzaprine [Flexeril] 10 mg PO TID PRN 05/31/16 [History] Allopurinol [Zyloprim] 300 mg PO DAILY 01/15/17 [History] Ascorbic Acid [Vitamin C] 1,000 mg PO DAILY 01/15/17 [History] Magnesium Oxide [Magnesium] 500 mg PO DAILY 01/15/17 [History] Potassium Chloride 20 meq PO DAILY 01/15/17 [History] Acetaminophen/HYDROcodone [Peosta 325-5 MG] 1 - 2 tab PO Q4H PRN #30 tablet 03/28 [Rx] Referrals: Miguel Pathak MD [Physician] - (See me next Sunday in [facility]. ) - Discharge Summary/Plan Comment DC Time >30 min.: Yes Discharge Summary/Plan Comment: See above narrative. - General Info Date of Service: 03/28/17 Admission Dx/Problem (Free Text: Chronic cholecystitis with biliary dyskinesia. Functional Status: Reports: pain controlled, tolerating diet, ambulating, urinating - Review of Systems General: Reports: No Symptoms HEENT: Reports: no symptoms Pulmonary: Reports: no symptoms Cardiovascular: Reports: No Symptoms Gastrointestinal: Reports: No symptoms, Other (He has had BMs. ) Genitourinary: Reports: no symptoms Musculoskeletal: Reports: no symptoms Skin: Reports: no symptoms Neurological: Reports: No Symptoms Psychiatric: Reports: no symptoms - Patient Data Vitals - Most Recent: Last Vital Signs Temp 98.6 F 03/28/17 07:27 Pulse 71 03/28/17 08:40 Resp 16 03/28/17 07:27 BP 123/77 03/28/17 08:40 Pulse Ox 97 03/28/17 07:27 Weight - Most Recent: 343 lb 0.699 oz I&O - Last 24 hours: Intake & Output 03/27/17 03/28/17 03/28/17 22:59 06:59 14:59 Intake Total 1858 311 240 Output Total 4606 918 3509 Balance [phone] -[phone] -360 DARRYL Results - Last 24 hrs: Microbiology 03/26/17 09:25 Gram Stain - Final Gallbladder Wound Culture - Preliminary NO GROWTH AFTER 2 DAYS Anaerobic Culture - Preliminary NO GROWTH AFTER 2 DAYS Med Orders - Current: Current Medications Hydrocodone Bitart/Acetaminophen (Peosta 325-5 Mg) 1 - 2 tab PO Q4H PRN PRN Reason: Pain Last Admin: 03/28/17 10:12 Dose: 2 tab Albuterol (Ventolin Hfa) 0 gm INH Q6H [facility] Last Admin: 03/28/17 11:39 Dose: 2 puff Allopurinol (Zyloprim) 300 mg PO DAILY [facility] Last Admin: 03/28/17 08:40 Dose: 300 mg Ascorbic Acid (Vitamin C) 1,000 mg PO DAILY [facility] Last Admin: 03/28/17 08:40 Dose: 1,000 mg Bisacodyl (Dulcolax) 10 mg RECTAL DAILY [facility] Last Admin: 03/28/17 08:41 Dose: 10 mg Calcium Carbonate (Caltrate 600+D 1500 Mg-400 Units) 1 tab PO BID [facility] Last Admin: 03/28/17 08:41 Dose: 1 tab Cyclobenzaprine HCl (Flexeril) 10 mg PO TID PRN PRN Reason: Muscle Spasm Last Admin: 03/27/17 18:43 Dose: 10 mg Furosemide (Lasix) 40 mg PO DAILY [facility] Last Admin: 03/28/17 08:41 Dose: 40 mg Hydroxyzine HCl (Vistaril) 50 mg IM Q4H PRN PRN Reason: Nausea Last Admin: 03/27/17 16:47 Dose: 50 mg Potassium Chloride/Dextrose/Sod Cl (D5 1/2 Ns W/ 20 Meq/L Kcl) 1,000 mls @ 25 mls/hr IV ASDIRECTED [facility] Insulin Aspart (Novolog) 0 unit SUBCUT ASDIRECTED [facility] PRN Reason: Protocol Last Admin: 03/27/17 16:50 Dose: 1 units Lisinopril (Prinivil) 10 mg PO DAILY [facility] Last Admin: 03/28/17 08:39 Dose: 10 mg Magnesium Oxide (Magnesium Oxide) 400 mg PO DAILY [facility] Last Admin: 03/28/17 08:41 Dose: 400 mg Metoprolol Succinate (Toprol Xl) 50 mg PO DAILY [facility] Last Admin: 03/28/17 08:40 Dose: 50 mg Mometasone Furoate (Asmanex 110 Mcg) 0 puff INH DAILY@0700 [facility] Last Admin: 03/28/17 07:16 Dose: 110 mcg Chromium Cinnamon ( (Ptom)) 200 - 1,000 tab PO DAILY [facility] Last Admin: 03/28/17 08:41 Dose: Not Given Ondansetron HCl (Zofran) 4 mg IVPUSH Q6H PRN PRN Reason: Nausea/Vomiting Potassium Chloride (Klor-Con M20) 20 meq PO DAILY@0800 [facility] Last Admin: 03/28/17 07:49 Dose: 20 meq Tamsulosin HCl (Flomax) 0.4 mg PO BEDTIME [facility] Last Admin: 03/27/17 20:06 Dose: 0.4 mg Tiotropium Providence (Spiriva Handihaler) 18 mcg INH DAILY@0730 [facility] Last Admin: 03/28/17 07:14 Dose: 18 mcg Discontinued Medications Hydrocodone Bitart/Acetaminophen (Peosta 325-5 Mg) Confirm Administered Dose 2 tab .ROUTE .STK-MED ONE Stop: 03/27/17 17:20 Last Admin: 03/27/17 17:21 Dose: Not Given Bupivacaine HCl/Epinephrine Bitart (Marcaine 0.5%/Epinephrine 1:200,000) Confirm Administered Dose 50 ml .ROUTE .STK-MED ONE Stop: 03/26/17 06:47 Last Admin: 03/26/17 08:33 Dose: 10 ml Dexamethasone (Dexamethasone) Confirm Administered Dose 4 mg .ROUTE .STK-MED ONE Stop: 03/26/17 07:32 Fentanyl (Sublimaze) Confirm Administered Dose 250 mcg .ROUTE .STK-MED ONE Stop: 03/26/17 07:32 Fentanyl (Sublimaze) Confirm Administered Dose 250 mcg .ROUTE .STK-MED ONE Stop: 03/26/17 08:15 Glycopyrrolate () Confirm Administered Dose 1 mg .ROUTE .STK-MED ONE Stop: 03/26/17 07:32 Hydromorphone HCl (Dilaudid Biztalk Administrator 15 Mg In Ns 30 Ml) 0 mg IV ASDIRECTED [facility] PRN Reason: Protocol Last Admin: 03/26/17 09:30 Dose: 0.3 mg Hydroxyzine HCl (Vistaril) Confirm Administered Dose 100 mg .ROUTE .STK-MED ONE Stop: 03/27/17 16:46 Last Admin: 03/27/17 16:59 Dose: Not Given Lactated Ringer's (Ringers, Lactated) 1,000 mls @ 0 mls/hr IV ASDIRECTED CHRIS PRN Reason: KVO Last Admin: 03/26/17 12:07 Dose: 25 mls/hr Cefoxitin Sodium 2 gm/ Sodium (Chloride) 50 mls @ 100 mls/hr IV ONETIME ONE Stop: 03/26/17 07:59 Last Admin: 03/26/17 07:41 Dose: 100 mls/hr Potassium Chloride/Dextrose/Sod Cl (D5 1/2 Ns W/ 20 Meq/L Kcl) 1,000 mls @ 125 mls/hr IV ASDIRECTED CHRIS Last Admin: 03/27/17 05:39 Dose: 125 mls/hr Lidocaine HCl (Xylocaine 1%) Confirm Administered Dose 50 ml .ROUTE .STK-MED ONE Stop: 03/26/17 06:47 Last Admin: 03/26/17 08:33 Dose: 10 ml Lidocaine HCl (Xylocaine 2% Jelly) 10 ml MUCMEM ONETIME ONE Stop: 03/26/17 22:36 Last Admin: 03/26/17 22:50 Dose: 10 ml Lidocaine HCl (Xylocaine 2% Jelly) Confirm Administered Dose 10 ml .ROUTE .STK- MED ONE Stop: 03/26/17 22:41 Last Admin: 03/26/17 22:50 Dose: Not Given Metoprolol Succinate (Toprol Xl) 50 mg PO ONETIME ONE Stop: 03/26/17 07:35 Last Admin: 03/26/17 07:39 Dose: 50 mg Naloxone HCl (Narcan) Confirm Administered Dose 0.4 mg .ROUTE .STK-MED ONE Stop: 03/26/17 08:00 Naloxone HCl (Narcan) 0.1 mg IV ASDIRECTED PRN PRN Reason: decreased respiratory rate Neostigmine Methylsulfate (Neostigmine) Confirm Administered Dose 5 mg .ROUTE .STK-MED ONE Stop: 03/26/17 07:32 Ondansetron HCl (Zofran) Confirm Administered Dose 4 mg .ROUTE .STK-MED ONE Stop: 03/26/17 07:32 Propofol (Diprivan 20 Ml) Confirm Administered Dose 200 mg .ROUTE .STK-MED ONE Stop: 03/26/17 07:32 Rocuronium Providence (Zemuron) Confirm Administered Dose 50 mg .ROUTE .STK-MED ONE Stop: 03/26/17 07:32 Succinylcholine Chloride (Succinylcholine In Ns Pf) Confirm Administered Dose 200 mg .ROUTE .STK-MED ONE Stop: 03/26/17 07:32 - Exam General: Reports: alert, oriented, cooperative, no acute distress Lungs: Reports: Clear to auscultation, Normal respiratory effort Cardiovascular: Reports: Regular Rate, Regular Rhythm Abdomen: Reports: bowel sounds present, soft, no tenderness, no distension Back Exam: Reports: Normal Inspection, Full Range of Motion Extremities: Reports: no edema Skin: Reports: warm, dry, intact Wound/Incisions: Reports: healing well Neurological: Reports: no new focal deficit Psy/Mental Status: Reports: alert, normal affect, normal mood *Q Meaningful Use (DIS) - VTE *Q VTE Criteria *Q: - Stroke *Q Stroke Criteria *Q: - AMI *Q AMI Criteria *Q:
== END 2017-03-28 13:18 | disposition home or self-care (01) ==
LOC: JP.SDS 05:57 → JP.MS 09:22 → JP.SDS 03-27 16:23 → JP.MS 03-27 16:24
PROVIDERS: ADMIT Surgery; ATTEND Surgery
DX: K81.1 Chronic cholecystitis (principal); K76.0 Fatty (change of) liver, not elsewhere classified; I50.32 Chronic diastolic (congestive) heart failure; I11.0 Hypertensive heart disease with heart failure; I48.91 Unspecified atrial fibrillation; I25.10 Atherosclerotic heart disease of native coronary artery without angina pectoris; F32.9 Major depressive disorder, single episode, unspecified; E78.1 Pure hyperglyceridemia; J44.9 Chronic obstructive pulmonary disease, unspecified; J45.909 Unspecified asthma, uncomplicated; E66.01 Morbid (severe) obesity due to excess calories; E11.9 Type 2 diabetes mellitus without complications; Z86.010 Personal history of colon polyps; Z85.038 Personal history of other malignant neoplasm of large intestine; Z79.01 Long term (current) use of anticoagulants; Z79.891 Long term (current) use of opiate analgesic; Z79.899 Other long term (current) drug therapy; Z98.890 Other specified postprocedural states
CPT/HCPCS: 36415; 47000; 47562; 80053; 82962; 85027; 85610; 87070; 87075; 87205; 88304; 88307; 88313; 94640; 94664; 94762; 96365; 96366; 96372; A9270; G0378; J0694; J1100; J1170; J2310; J2405; J2704; J3010; J3410; J3480; J7050; J7120

== ENCOUNTER 2017-07-27 07:14 | Day surgery (SDC) | payer MEDICARE, BC ==
[2017-07-27] MEDS ORDERED: Midazolam 1 MG/ML 2 ML SDV ONE (08:11)
[2017-07-27] MEDS ORDERED: Propofol 200 MG/20 ML SDV ONE ×3 (08:11→08:43)
[2017-07-27] MEDS ORDERED: fentaNYL 100 MCG/2 ML SDV ONE (08:11)
[2017-07-27] MEDS ORDERED: Lactated Ringers 1,000 ML IV SCH (08:15)
[2017-07-27 09:41] VITALS: BP 132/72
--- NOTE | 2017-07-27 12:49 | OR ---
DATE OF PROCEDURE: 07/27/2017 PREOPERATIVE DIAGNOSIS: History of colon cancer and adenomatous polyps. POSTOPERATIVE DIAGNOSIS: Four small colon polyps; history of colon cancer and adenomatous polyps. PROCEDURE: Colonoscopy to the ileotransverse colon anastomosis with biopsy resection of four small colon polyps. ANESTHESIA: IV anesthesia with monitored anesthesia care. INDICATION: This 66-year-old white male has a history of a right colon cancer, for which he underwent a right hemicolectomy in 2001. His last colonoscopy was done a year ago, where eight adenomatous polyps were removed. He is here for a followup colonoscopy one year later. I counseled him for the procedure including risks and alternatives, and he gave his informed consent to proceed. DESCRIPTION OF PROCEDURE: The patient was placed in the left lateral decubitus position. IV anesthesia was administered by the Anesthesia Service. Time-out was held. A rectal exam was performed, which was unremarkable. The flexible video Olympus colonoscope was introduced through his anus, up his rectum, and out his colon, all the way to the ileotransverse colon anastomosis. En route, in the midtransverse colon, we saw a small polyp, which was removed with the biopsy forceps. In the proximal transverse colon, we saw another small polyp, which was removed with the biopsy forceps. Once the ileotransverse colon anastomosis was reached, the scope was slowly withdrawn, examining the mucosa throughout. In the distal transverse colon, we saw another small polyp, which was removed with the biopsy forceps. A fourth polyp was seen at 65 cm from the anal verge, which was also small, and it was removed with the biopsy forceps. The scope was brought back into the rectum, where it was retroflexed. The distal rectum appeared unremarkable. The scope was straightened and removed. He tolerated the procedure well. Miguel Pathak MD /[id number] MTDD
== END 2017-07-27 10:05 | disposition home or self-care (01) ==
LOC: JP.SDS 07:14
PROVIDERS: ATTEND Surgery
DX: Z12.11 Encounter for screening for malignant neoplasm of colon (principal); D12.3 Benign neoplasm of transverse colon; D12.6 Benign neoplasm of colon, unspecified; I10 Essential (primary) hypertension; E11.9 Type 2 diabetes mellitus without complications; E66.9 Obesity, unspecified; J44.9 Chronic obstructive pulmonary disease, unspecified; Z85.038 Personal history of other malignant neoplasm of large intestine; Z86.010 Personal history of colon polyps; Z95.0 Presence of cardiac pacemaker; Z68.30 Body mass index [BMI] 30.0-30.9, adult; Z79.01 Long term (current) use of anticoagulants
CPT/HCPCS: 45380; J2250; J2704; J3010; J7120; 88305

== ENCOUNTER 2017-11-26 11:48 | Emergency (ER) | payer MEDICARE, BC ==
[2017-11-26 12:02] VITALS: BP 173/88
[2017-11-26] MEDS ORDERED: Lidocaine 1% 20 ML MDV INJECT ONE (12:10)
[2017-11-26] MEDS ORDERED: Bacitracin Oint 1 GM U/D Packet TOP ONE (12:10)
--- NOTE | 2017-11-26 12:10 | EDM.PDOC ---
ED HPI GENERAL MEDICAL PROBLEM - General Chief Complaint: Laceration Stated Complaint: CUT RT HAND FINGERS Time Seen by Provider: 11/26/17 12:09 Source of Information: Reports: Patient History Limitations: Reports: No Limitations - History of Present Illness INITIAL COMMENTS - FREE TEXT/NARRATIVE: pt cut the martell aspect of his middle finger with a wood scraper. He has a 1 inch laceration on the tip of the middle finger. he has a laceration of the index finger which starts on the martell aspect and comes around to the other side by the finger nail. 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) - Related Data Allergies Allergy/AdvReac Type Severity Reaction Status Date / Time No Known Allergies Allergy Verified 06/02/16 08:38 Home Meds: Home Meds Metoprolol Succinate 50 mg PO DAILY 03/09/14 [History] Warfarin [Coumadin] 5 mg PO DAILY 03/09/14 [History] Tiotropium [Spiriva HandiHaler] 1 puff INH DAILY 03/22/16 [History] Albuterol Sulfate [Proair Hfa] 2 puff IH Q6H PRN 04/05/16 [History] Chromium Cinnamon 200 - 1,000 tab PO DAILY 04/05/16 [History] Fluticasone Propionate [Flovent HFA 44 mcg] 2 puff IH BID 04/05/16 [History] Furosemide [Lasix] 40 mg PO DAILY 04/05/16 [History] Lisinopril 10 mg PO DAILY 04/05/16 [History] Calcium Carbonate/Vitamin D3 [Calcium 600 + Vit D 400 Softgl] 1 each PO BID [History] Cyclobenzaprine [Flexeril] 10 mg PO TID PRN 05/31/16 [History] Allopurinol [Zyloprim] 300 mg PO DAILY 01/15/17 [History] Ascorbic Acid [Vitamin C] 1,000 mg PO DAILY 01/15/17 [History] Magnesium Oxide [Magnesium] 500 mg PO DAILY 01/15/17 [History] Potassium Chloride 20 meq PO DAILY 01/15/17 [History] Aspirin [Adult Low Dose Aspirin EC] 81 mg PO DAILY 07/26/17 [History] Gabapentin [Neurontin] 300 mg PO TID 07/26/17 [History] Prednisone [IJP: Prednisone] 40 mg PO DAILY 07/26/17 [History] Past Medical History HEENT History: Reports: None Cardiovascular History: Reports: Blood Clots/VTE/DVT, Heart Murmur, Hypertension , Pacemaker, SOB on Exertion Respiratory History: Reports: COPD, SOB Gastrointestinal History: Reports: Colon Polyp, Hemorrhoids Genitourinary History: Reports: None Musculoskeletal History: Reports: Arthritis, Back Pain, Chronic, Gout, Neck Pain , Chronic Neurological History: Reports: Concussion Psychiatric History: Reports: None Endocrine/Metabolic History: Reports: Diabetes, Type II, Obesity/BMI 30+ Hematologic History: Reports: Anticoagulation Therapy, Blood Transfusion(s) Other Hematologic History: Anticoagulation therapy Immunologic History: Reports: None Oncologic (Cancer) History: Reports: Colon Dermatologic History: Reports: None - Infectious Disease History Infectious Disease History: Reports: Measles - Past Surgical History HEENT Surgical History: Reports: LASIK Cardiovascular Surgical History: Reports: None, Pacer Respiratory Surgical History: Reports: None GI Surgical History: Reports: Cholecystectomy, Colon, Colonoscopy, Hernia, Abdominal, Hernia, Inguinal, Polypectomy, Other (See Below) Male Surgical History: Reports: None Endocrine Surgical History: Reports: None Neurological Surgical History: Reports: None Musculoskeletal Surgical History: Reports: Arthroscopic Knee Oncologic Surgical History: Reports: Other (See Below) Other Oncologic Surgeries/Procedures: COLON RESECTION Dermatological Surgical History: Reports: None Social & Family History - Family History Family Medical History: Noncontributory - Tobacco Use Smoking Status *Q: Former Smoker Years of Tobacco use: 30 Packs/Tins Daily: 1 Used Tobacco, but Quit: Yes Month Tobacco Last Used: September Hand Smoke Exposure: No - Caffeine Use Caffeine Use: Reports: Coffee - Alcohol Use Days Per Week of Alcohol Use: 7 Number of Drinks Per Day: 4 Total Drinks Per Week: 28 - Recreational Drug Use Recreational Drug Use: No ED ROS GENERAL - Review of Systems Review Of Systems: See Below Constitutional: Reports: No Symptoms HEENT: Reports: No Symptoms Respiratory: Reports: No Symptoms Cardiovascular: Reports: No Symptoms Endocrine: Reports: No Symptoms GI/Abdominal: Reports: No Symptoms : Reports: No Symptoms Musculoskeletal: Reports: Other (laceration of the midle and index finger. ) Skin: Reports: No Symptoms ED EXAM, SKIN/RASH Exam: See Below Text/Narrative:: pt has a laceration of the middle finger and the index finger from a bone scraper. Exam Limited By: No Limitations General Appearance: Alert, Moderate Distress Ears: Normal TMs Nose: Normal Inspection Throat/Mouth: Normal Inspection Extremities: Other ( rt middle finger has a 1 inch laceration on the martell aspect of the middle finger. This is deep into the subq. He has full range of motion of the finger. She has normal sensation at the tip of the finger. . He has a very ragged laceration of the tip of the index finger which comes aroiund to the nail bed. The length is 1.25 inches. ) Course - Vital Signs Last Recorded V/S: Last Vital Signs Temp 36.5 C 11/26/17 12:05 Pulse 88 11/26/17 12:05 Resp 18 11/26/17 12:05 BP 173/88 H 11/26/17 12:05 Pulse Ox 94 L 11/26/17 12:05 - Orders/Labs/Meds Orders: Active Orders 24 hr Category Date Time Status Hand 2V Rt [CR] Stat Exams 11/26/17 12:08 Taken Labs: Laboratory Tests 11/26/17 Range/Units 12:02 PT 31.0 H (9.5-12.0) sec INR 2.78 H (0.80-1.20) Meds: Medications Discontinued Medications Generic Name Dose Route Start Last Admin Trade Name Pabloq PRN Reason Stop Dose Admin Bacitracin 1 dose 11/26/17 12:10 11/26/17 12:15 Bacitracin Oint 1 Gm TOP 11/26/17 12:11 1 dose ONETIME ONE Administration Lidocaine HCl 20 ml 11/26/17 12:10 11/26/17 12:15 Xylocaine 1% INJECT 11/26/17 12:11 20 ml ONETIME ONE Administration - Re-Assessments/Exams Free Text/Narrative Re-Assessment/Exam: 11/26/17 13:23 The hand was soaked and irrigated with saline. The fingers were infiltrated with lidocaine. The wound on the martell aspect of the middle finger was brought together quite easily with 5-0 chromic and 5-0 prolene. The laceration on the index finger was very ragged. The edges were trimmed quite nicely The laceration did extend into the nail bed. The wound was brought together with 5- 0 chromic and 5-0 prolene. The bleeding and ozzing came under good control His inr was 2.78. The wounds wre dressed with bacatracin and guaze. He will see surgery wed. An xray of the hand did not reveal any fractures. Time involved-1 hr. Departure - Departure Time of Disposition: 13:27 Disposition: Home, Self-Care 01 Condition: Fair Clinical Impression: Laceration - Discharge Information Referrals: PCP,None [Primary Care Provider] - Forms: ED Department Discharge Care Plan Goals: keep dry, elevate, see surgery in 2 dayskeflex 500mg tid, percocet 5/325 q6h prn for pain #12 - My Orders Last 24 Hours: My Active Orders 11/26/17 12:08 Hand 2V Rt [CR] Stat - Assessment/Plan Last 24 Hours: My Active Orders 11/26/17 12:08 Hand 2V Rt [CR] Stat
--- NOTE | 2017-11-26 13:44 | CR ---
Hand 2V Rt HISTORY: Laceration, injury. COMPARISON: None FINDINGS: Laceration of the second and third fingers. No foreign body no fracture or dislocation seen .
== END 2017-11-26 13:37 | disposition home or self-care (01) ==
LOC: JP.ED 11:48
DX: S61.212A Laceration without foreign body of right middle finger without damage to nail, initial encounter (principal); I10 Essential (primary) hypertension; J44.9 Chronic obstructive pulmonary disease, unspecified; E66.9 Obesity, unspecified; Z87.891 Personal history of nicotine dependence; Z79.899 Other long term (current) drug therapy; Z79.01 Long term (current) use of anticoagulants; Z79.82 Long term (current) use of aspirin; W26.8XXA Contact with other sharp object(s), not elsewhere classified, initial encounter
CPT/HCPCS: 12002; 36415; 73120-26-RT; 73120-RT; 85610; 99283; 99283-25

== ENCOUNTER 2017-12-21 10:29 | Emergency (ER) | payer MEDICARE, BC ==
[2017-12-21 11:11] VITALS: BP 156/90
[2017-12-21] MEDS ORDERED: Ondansetron 4 MG Tab.DIS PO ONE (11:15)
[2017-12-21] MEDS ORDERED: Ketorolac 60 MG/2 ML SDV IM ONE (11:15)
--- NOTE | 2017-12-21 11:19 | EDM.PDOC ---
ED HPI GENERAL MEDICAL PROBLEM - General Chief Complaint: Flank Pain Stated Complaint: KIDNEY/FLANK PAIN Time Seen by Provider: 12/21/17 11:12 Source of Information: Reports: Patient, Family, RN Notes Reviewed History Limitations: Reports: No Limitations - History of Present Illness INITIAL COMMENTS - FREE TEXT/NARRATIVE: 66-year-old gentleman presents to the emergency department today complaint of right flank pain came on suddenly it is colicky in nature he is nauseated with the pain pain initially started on 3 days prior has progressively gotten worse does have a history of nephrolithiasis. Was initially evaluated in urgent care clinic urinalysis did show trace amount of blood occasional bacteria otherwise unremarkable sent to the emergency department for further evaluation Right Flank Pain Score (Numeric/FACES): 10 - Related Data Allergies Allergy/AdvReac Type Severity Reaction Status Date / Time No Known Allergies Allergy Verified 12/21/17 11:04 Home Meds: Home Meds Metoprolol Succinate 50 mg PO DAILY 03/09/14 [History] Warfarin [Coumadin] 2.5 mg PO ASDIRECTED 03/09/14 [History] Tiotropium [Spiriva HandiHaler] 1 puff INH DAILY 03/22/16 [History] Albuterol Sulfate [Proair Hfa] 2 puff IH Q6H PRN 04/05/16 [History] Chromium Cinnamon 200 - 1,000 tab PO DAILY 04/05/16 [History] Fluticasone Propionate [Flovent HFA 44 mcg] 2 puff IH BID 04/05/16 [History] Furosemide [Lasix] 40 mg PO DAILY 04/05/16 [History] Lisinopril 10 mg PO DAILY 04/05/16 [History] Calcium Carbonate/Vitamin D3 [Calcium 600 + Vit D 400 Softgl] 1 each PO BID [History] Cyclobenzaprine [Flexeril] 10 mg PO TID PRN 05/31/16 [History] Allopurinol [Zyloprim] 300 mg PO DAILY 01/15/17 [History] Aspirin [Adult Low Dose Aspirin EC] 81 mg PO DAILY 07/26/17 [History] Gabapentin [Neurontin] 300 mg PO TID 07/26/17 [History] Allopurinol [Zyloprim] 100 mg PO DAILY 12/21/17 [History] Past Medical History Cardiovascular History: Reports: Blood Clots/VTE/DVT, Heart Murmur, Hypertension , Pacemaker, SOB on Exertion Respiratory History: Reports: COPD, PE, SOB Gastrointestinal History: Reports: Colon Polyp, Hemorrhoids Genitourinary History: Reports: BPH Musculoskeletal History: Reports: Arthritis, Back Pain, Chronic, Gout, Neck Pain , Chronic Neurological History: Reports: Concussion Endocrine/Metabolic History: Reports: Diabetes, Type II, Obesity/BMI 30+ Hematologic History: Reports: Anticoagulation Therapy, Blood Transfusion(s) Other Hematologic History: Anticoagulation therapy Oncologic (Cancer) History: Reports: Colon - Infectious Disease History Infectious Disease History: Reports: Measles - Past Surgical History HEENT Surgical History: Reports: LASIK Cardiovascular Surgical History: Reports: Pacer GI Surgical History: Reports: Cholecystectomy, Colon, Colonoscopy, Hernia, Abdominal, Hernia, Inguinal, Polypectomy Male Surgical History: Reports: Other (See Below) Other Male Surgeries/Procedures: cystoscopy Musculoskeletal Surgical History: Reports: Arthroscopic Knee Oncologic Surgical History: Reports: Other (See Below) Other Oncologic Surgeries/Procedures: COLON RESECTION Social & Family History - Family History Family Medical History: Noncontributory - Tobacco Use Smoking Status *Q: Never Smoker Years of Tobacco use: 30 Packs/Tins Daily: 1 Used Tobacco, but Quit: Yes Month/Year Tobacco Last Used: September Hand Smoke Exposure: No - Caffeine Use Caffeine Use: Reports: Coffee - Alcohol Use Days Per Week of Alcohol Use: 7 Number of Drinks Per Day: 6 Total Drinks Per Week: 42 - Recreational Drug Use Recreational Drug Use: No ED ROS GENERAL - Review of Systems Review Of Systems: See Below Constitutional: Reports: No Symptoms HEENT: Reports: No Symptoms Respiratory: Reports: No Symptoms Cardiovascular: Reports: No Symptoms GI/Abdominal: Reports: Nausea : Reports: Flank Pain Musculoskeletal: Reports: No Symptoms Skin: Reports: No Symptoms Neurological: Reports: No Symptoms ED EXAM, GI/ABD - Physical Exam Exam: See Below Exam Limited By: No Limitations General Appearance: Alert, Mild Distress Respiratory/Chest: No Respiratory Distress, Lungs Clear, Normal Breath Sounds, No Accessory Muscle Use Cardiovascular: Regular Rate, Rhythm, No Murmur GI/Abdominal Exam: Soft, Non-Tender Back Exam: Normal Inspection, Full Range of Motion, CVA Tenderness (R). No: Paraspinal Tenderness, Vertebral Tenderness Course - Vital Signs Last Recorded V/S: Last Vital Signs Temp 97.5 F 12/21/17 11:13 Pulse 72 12/21/17 11:13 Resp 20 12/21/17 11:13 BP 156/90 H 12/21/17 11:13 Pulse Ox 97 12/21/17 11:13 - Orders/Labs/Meds Labs: Laboratory Tests 12/21/17 12/21/17 12/21/17 Range/Units 11:23 11:23 11:23 WBC 8.6 (4.5-11.0) K/uL RBC 4.63 (4.30-5.90) M/uL Hgb 15.8 H (12.0-15.0) g/dL Hct 46.0 (40.0-54.0) % MCV 99 H (80-98) fL MCH 34 H (27-31) pg MCHC 34 (32-36) % Plt Count 225 (150-400) K/uL Neut % (Auto) 75 H (36-66) % Lymph % (Auto) 12 L (24-44) % Letcher % (Auto) 11 H (2-6) % Eos % (Auto) 1 L (2-4) % Baso % (Auto) 0 (0-1) % PT 33.5 H (9.5-12.0) sec INR 2.99 H (0.80-1.20) Sodium 138 L (140-148) mmol/L Potassium 4.3 (3.6-5.2) mmol/L Chloride 101 (100-108) mmol/L Carbon Dioxide 26 (21-32) mmol/L Anion Gap 15.3 H (5.0-14.0) mmol/L BUN 14 (7-18) mg/dL Creatinine 1.0 (0.8-1.3) mg/dL Est Cr Clr Drug Dosing 80.83 mL/min Estimated GFR (MDRD) > 60 (>60) Glucose 132 H (74-106) mg/dL Calcium 9.2 (8.5-10.1) mg/dL Meds: Medications Discontinued Medications Generic Name Dose Route Start Last Admin Trade Name Freq PRN Reason Stop Dose Admin Ketorolac Tromethamine 60 mg 12/21/17 11:15 12/21/17 11:31 Toradol IM 12/21/17 11:16 60 mg ONETIME ONE Administration Ondansetron HCl 4 mg 12/21/17 11:15 12/21/17 11:32 Zofran Odt PO 12/21/17 11:16 4 mg ONETIME ONE Administration Departure - Departure Time of Disposition: 12:19 Disposition: Home, Self-Care 01 Condition: Fair Clinical Impression: Right flank pain - Discharge Information Referrals: Saul Gaytan PA [Primary Care Provider] - Forms: ED Department Discharge Additional Instructions: Use hydrocodone as needed for pain control, Please followup with your primary care provider in 3-5 days if not better, please call return to the emergency department with worsening of symptoms. - Assessment/Plan Plan: Assessment Acuity = acute Site and laterality = right flank pain Etiology = unclear etiology Manifestations = none Location of injury = Home Lab values = CBC, BMP unremarkable CT scan reveals no acute process in the abdomen Plan He had good relief from the Toradol injection, plan discharge home hydrocodone 5 /325 one tablet by mouth 3 times a day when necessary total #10 follow-up with primary care 3-5 days for reevaluation This note was dictated using [employer] voice recognition software please call with any questions on syntax or sruthi.
--- NOTE | 2017-12-21 12:08 | CT ---
Abdomen Pelvis wo Cont HISTORY: Right flank pain Axial spiral noncontrasted CT scan of the abdomen and pelvis was obtained along with coronal reconstr uctions. Auto dosage and iterative reconstruction techniques were employed. COMPARISON: 03/01/2017 FINDINGS: There is mild atelectasis at the lung bases posteriorly. Heart size is within normal limits . Pacemaker lead wires are noted. Attenuation of the liver is decreased diffusely consistent with fat ty infiltration. Gallbladder is surgically absent. There is no biliary duct dilatation. I see no foca l abnormality of the spleen, pancreas, or adrenal glands. Bilateral renal cysts are stable. Atheroscl erotic aorta is redemonstrated. There is no aneurysmal dilatation. Inferior vena cava filter is noted . No pelvic mass or abnormal fluid collections are seen. I see no pelvic, or intracranial, mesenteric a denopathy. There is no free air or free fluid. Small midline anterior abdominal wall hernia is redemo nstrated containing only fat. There are no signs of incarceration. Anterior abdominal graft material is noted just caudal to the hernia. Overall appearance is stable in the interval. There are diffuse d egenerative and hypertrophic changes lower thoracic and lumbar spine. Loops of small bowel are nondistended. Probable old right hemicolectomy changes are noted. IMPRESSION: 1. No renal stone disease is identified. There is no hydronephrosis or ureteral dilatation. Small jodi ateral renal cysts are stable. 2. There is atelectasis at the lung bases, right greater than left. 3. Fatty infiltration of liver is similar to the prior exam. 4. Gallbladder is surgically absent. 5. Inferior vena cava filter is noted. 6. Abdominal wall mesh graft is noted. Just cephalad to the graft there is a small midline abdominal wall hernia containing only fat. There are no signs of incarceration. Hernia is stable. 7. Probable old right hemicolectomy changes are noted. Report was called to Officer In the Emergency Department at 1200 hours.
== END 2017-12-21 12:37 | disposition home or self-care (01) ==
LOC: JP.ED 10:29
DX: R10.9 Unspecified abdominal pain (principal); J44.9 Chronic obstructive pulmonary disease, unspecified; E11.9 Type 2 diabetes mellitus without complications; E66.9 Obesity, unspecified; Z79.899 Other long term (current) drug therapy; Z79.82 Long term (current) use of aspirin
CPT/HCPCS: 36415; 74176; 80048; 85025; 85610; 96372; 99284; A9270; J1885

== ENCOUNTER → 2018-12-25 | Outpatient (CLI) | payer MEDICARE, BC ==
[~2018-12-25] MED LIST: Iopamidol 612 MG/ML 150 ML Bottle IV SCH; Sodium Chloride 0.9% 10 ML Syringe FLUSH ONE; Sodium Chloride 0.9% 80 ML IV ONE
--- NOTE | 2018-12-25 11:03 | CT ---
Urogram CT UROGRAM CLINICAL HISTORY: Hematuria COMPARISON: 2017 TECHNIQUE: Multiple contiguous axial images were obtained from the level of the lung bases down to the pubic symphysis without and with the IV infusion of iodinated contrast oral contrast was not administered. Coronal and sagital reconstructions of the renal collecting systems, ureters, and bladder were also obtained .Auto dosage reduction and iterative reconstruction techniques employed. FINDINGS:The visualized lung bases are clear. Liver shows diffuse fatty infiltration. Gallbladder has been removed. The spleen has normal size and shape. There is a vague small low-attenuation focus in the lower portion of the spleen which was present on the 2017 study Pancreas shows no mass or inflammatory change. There is a 3.5 x 2.9 cm cyst on the midpole of the right kidney. This is similar to prior study. There is a 3.7 x 2.3 cm cyst in the anterior midpole of the left kidney also unchanged from prior study. No urinary stones are identified. There is no hydronephrosis. The ureters have a normal course and caliber. There is mild generalized bladder wall thickening. Resting is moderately enlarged. There are some internal calcifications. Patient appears to have had a right hemicolectomy. Small intestinal gas pattern is nonspecific. IMPRESSION: Generalized bladder wall hypertrophy. This has increased since 2017 Moderate prostatic enlargement. This has also increased since the prior study Bilateral renal cortical cysts No renal mass, stones or hydronephrosis Fatty infiltration of the liver Previous cholecystectomy
== END ==
LOC: JP.CT 08:34
PROVIDERS: ATTEND Urology
DX: N36.8 Other specified disorders of urethra (principal); R31.9 Hematuria, unspecified; N40.0 Benign prostatic hyperplasia without lower urinary tract symptoms; N28.89 Other specified disorders of kidney and ureter; K76.0 Fatty (change of) liver, not elsewhere classified; Z90.49 Acquired absence of other specified parts of digestive tract
CPT/HCPCS: 36415; 74178; 82565; J7030; J7050

== ENCOUNTER 2021-08-18 08:25 | Day surgery (SDC) | payer MEDICARE, BC ==
[~2021-08-18 08:25] MED LIST changes: -Iopamidol 612 MG/ML 150 ML Bottle IV SCH; +Midazolam 1 MG/ML 2 ML SDV ONE; +Propofol 200 MG/20 ML SDV ONE; -Sodium Chloride 0.9% 10 ML Syringe FLUSH ONE; -Sodium Chloride 0.9% 80 ML IV ONE; +fentaNYL 100 MCG/2 ML SDV ONE
[2021-08-18] MEDS ORDERED: Sodium Chloride 0.9% 1,000 ML IV SCH (09:00)
[2021-08-18 09:13] LABS: CORONAVIRUS COVID-19 NAA NEGATIVE (NEGATIVE)
[2021-08-18 11:05] VITALS: BP 149/85; PULSE 69
--- NOTE | 2021-08-18 11:56 | OR ---
DATE OF PROCEDURE: 08/18/2021 SURGEON: Rickie Rucker MD PROCEDURE: Colonoscopy. FINDINGS: 1. Normal colonic anastomosis. 2. No other gross abnormalities. COMPLICATIONS: None. SATURATOR TENDER: None. PREOPERATIVE DIAGNOSIS: Colorectal cancer. POSTOPERATIVE DIAGNOSIS: Colorectal cancer. RISKS: Risks, benefits, alternatives, and limitations including, but not limited to infection, bleeding, perforation, false positives, false negatives were explained to the patient who wished to proceed. PROCEDURE IN DETAIL: The patient was placed in left lateral decubitus position. Digital rectal exam was performed without abnormality. Scope was introduced and advanced atraumatically to the ileocecal valve. A photo was taken of this. Scope was brought back to the ascending, transverse, descending colon, and retroflexed. No evidence of old or new blood. No masses. No polyps. The anastomosis appeared normal. No abnormalities on retroflexion. Prep was acceptable, approximately 90% of the luminal surface could be seen. Greater than 8 minutes was spent removing the scope. The patient tolerated the procedure well. Rickie Rucker MD /[id number]
== END 2021-08-18 11:20 | disposition home or self-care (01) ==
LOC: JP.SDS 08:25
PROVIDERS: ATTEND Surgery
DX: Z12.11 Encounter for screening for malignant neoplasm of colon (principal); J44.9 Chronic obstructive pulmonary disease, unspecified; E11.9 Type 2 diabetes mellitus without complications; I48.91 Unspecified atrial fibrillation; Z85.038 Personal history of other malignant neoplasm of large intestine; Z87.891 Personal history of nicotine dependence; Z98.0 Intestinal bypass and anastomosis status; Z01.812 Encounter for preprocedural laboratory examination; Z20.822 Contact with and (suspected) exposure to COVID-19
CPT/HCPCS: 0241U; G0105; J2250; J2704; J3010; J7030

== ENCOUNTER 2022-12-12 16:35 | Emergency (ER) | payer MEDICARE ==
[2022-12-12 16:53] VITALS: BP 144/64; PULSE 73
[2022-12-12] MEDS ORDERED: HYDROmorphone 1 MG/ML Syringe IM ONE (16:56)
== END 2022-12-12 18:40 | disposition home or self-care (01) ==
LOC: JP.ED 16:35
DX: S39.012A Strain of muscle, fascia and tendon of lower back, initial encounter (principal); I10 Essential (primary) hypertension; J44.9 Chronic obstructive pulmonary disease, unspecified; M10.9 Gout, unspecified; E11.9 Type 2 diabetes mellitus without complications; E66.9 Obesity, unspecified; Z68.41 Body mass index [BMI] 40.0-44.9, adult; Z79.01 Long term (current) use of anticoagulants; Z79.899 Other long term (current) drug therapy; Z79.84 Long term (current) use of oral hypoglycemic drugs; W00.0XXA Fall on same level due to ice and snow, initial encounter
CPT/HCPCS: 72192; 96372; 99283; J1170

== ENCOUNTER 2025-05-27 07:38 | Day surgery (SDC) | payer MEDICARE ==
[2025-05-27] MEDS: Lactated Ringers 1,000 ML IV SCH (08:27)
[2025-05-27] MEDS ORDERED: fentaNYL 100 MCG/2 ML SDV ONE (08:35)
[2025-05-27] MEDS ORDERED: Propofol 200 MG/20 ML SDV ONE ×2 (08:35→10:26)
[2025-05-27 11:32] VITALS: BP 129/75; PULSE 69
== END 2025-05-27 11:35 | disposition home or self-care (01) ==
LOC: JP.SDS 07:38
PROVIDERS: ATTEND Surgery
DX: Z12.11 Encounter for screening for malignant neoplasm of colon (principal); D12.3 Benign neoplasm of transverse colon; D12.2 Benign neoplasm of ascending colon; I10 Essential (primary) hypertension; E78.00 Pure hypercholesterolemia, unspecified; Z86.0100 Personal history of colon polyps, unspecified; Z87.891 Personal history of nicotine dependence; Z79.899 Other long term (current) drug therapy
CPT/HCPCS: 00811-QZ; 88305; J2704; J3010; J7120